=== PATIENT | female | born 1970 | race African-American/Black ===

== ENCOUNTER 2017-01-25 21:25 | Inpatient (IN) | payer OTHER ==
[2017-01-25 21:42] VITALS: BMI 21.1
--- NOTE | 2017-01-25 21:49 | HP ---
CIWA Score - CIWA Score Nausea/Vomitin-Mild Nausea/No Vomiting Muscle Tremors: 4-Moderate,w/Arms Extend Anxiety: 4-Mod. Anxious/Guarded Agitation: 4-Moderately Restless Paroxysmal Sweats: 1-Minimal Palms Moist Orientation: 0-Oriented Tacttile Disturbances: 0-None Auditory Disturbances: 0-None Visual Disturbances: 0-None Headache: 0-None Present CIWA-Ar Total Score: 14 Admission ROS BHS - HPI Chief Complaint: withdrawal sx Allergies/Adverse Reactions: Allergies Allergy/AdvReac Type Severity Reaction Status Date / Time No Known Allergies Allergy Verified 01/25/17 21:46 History of Present Illness: 46 years old female with long history of alcohol nicotine cocaine dependence, has hiv and schizophrenia is admitted to detox Exam Limitations: No Limitations - Ebola screening Have you traveled outside of the country in the last 21 days: No Have you had contact with anyone from an Ebola affected area: No Have you been sick,other than usual withdrawal symptoms: No Do you have a fever: No - Review of Systems Constitutional: Loss of Appetite, Changes in sleep, Unintentional Wgt. Loss, Unexplained wgt Loss EENT: reports: No Symptoms Reported Respiratory: reports: No Symptoms reported Cardiac: reports: No Symptoms Reported GI: reports: Nausea, Poor Appetite, Poor Fluid Intake, Abdominal cramping : reports: No Symptoms Reported Musculoskeletal: reports: No Symptoms Reported Integumentary: reports: No Symptoms Reported Neuro: reports: Tremors Endocrine: reports: No Symptoms Reported Hematology: reports: No Symptoms Reported Psychiatric: reports: Judgement Intact, Orientated x3, Anxious, Depressed Other Systems: Reviewed and Negative Patient History - Patient Medical History Hx Anemia: No Hx Asthma: No Hx Chronic Obstructive Pulmonary Disease (COPD): No Hx Cancer: No Hx Cardiac Disorders: No Hx Congestive Heart Failure: No Hx Hypertension: No Hx Hypercholesterolemia: No Hx Pacemaker: No HX Cerebrovascular Accident: No Hx Seizures: No Hx Dementia: No Hx Diabetes: No Hx Gastrointestinal Disorders: No Hx Liver Disease: No Hx Genitourinary Disorders: No Hx Sexually Transmitted Disorders: No Hx Renal Disease (ESRD): No Hx Thyroid Disease: No Hx Human Immunodeficiency Virus (HIV): Yes (2006) Hx Hepatitis C: No Hx Depression: No Hx Suicide Attempt: No Hx Bipolar Disorder: No Hx Schizophrenia: Yes - Patient Surgical History Past Surgical History: No - PPD History Previous Implant?: Yes Documented Results: Negative w/o proof Implanted On Prior [facility] Admission?: No PPD to be Administered?: Yes - Reproductive History Patient is a Female of Child Bearing Age (11 -55 yrs old): Yes Last Menstrual Period: 01/26/16 Patient : No - Smoking Cessation Smoking history: Current every day smoker Have you smoked in the past 12 months: Yes Cigars Per Day: 0 Hx Chewing Tobacco Use: No Initiated information on smoking cessation: Yes 'Breaking Loose' booklet given: 01/25/17 - Substance & Tx. History Hx Alcohol Use: Yes Hx Substance Use: Yes Substance Use Type: Alcohol, Cocaine Hx Substance Use Treatment: Yes (09/2016) - Substances Abused Alcohol Route: Oral Frequency: Daily Amount used: 1 1/2 pint volka Age of first use: 17 Date of Last Use: 01/25/17 Cocaine Route: Smoking Frequency: Daily Amount used: 7 G Age of first use: 22 Date of Last Use: 01/24/17 Family Disease History - Family Disease History Family Disease History: Diabetes: Father (), Other: Father Admission Physical Exam [facility] - Vital Signs Vital Signs: Vital Signs - 24 hr 01/25/17 21:40 Temperature 97.4 F L Pulse Rate 63 Respiratory 20 Rate Blood Pressure 137/74 - Physical General Appearance: Yes: Appropriately Dressed, Mild Distress, Thin, Tremorous, Irritable, Sweating, Anxious HEENTM: Yes: Hearing grossly Normal, Normal ENT Inspection, Normocephalic, Normal Voice Respiratory: Yes: Chest Non-Tender, Lungs Clear, Normal Breath Sounds, No Respiratory Distress, No Accessory Muscle Use Neck: Yes: Supple, Trachea in good position Breast: Yes: Breasts Symetrical Cardiology: Yes: Regular Rhythm, Regular Rate, S1, S2 Abdominal: Yes: Non Tender, Soft, Increased Bowel Sounds Genitourinary: Yes: Within Normal Limits Back: Yes: Normal Inspection Musculoskeletal: Yes: full range of Motion, Gait Steady Extremities: Yes: Normal Inspection, Normal Range of Motion, Non-Tender, Tremors Neurological: Yes: Fully Oriented, Alert, Motor Strength 5/5, Normal Response, Depressed Affect Integumentary: Yes: Warm Lymphatic: Yes: Within Normal Limits - Diagnostic (1) Alcohol dependence with uncomplicated withdrawal Current Visit: Yes Status: Acute (2) Cocaine dependence, uncomplicated Current Visit: Yes Status: Chronic (3) Nicotine dependence Current Visit: Yes Status: Acute Qualifiers: Nicotine product type: cigarettes Substance use status: in withdrawal Qualified Code(s): F17.213 - Nicotine dependence, cigarettes, with withdrawal (4) HIV (human immunodeficiency virus infection) Current Visit: Yes Status: Chronic (5) Schizophrenia Current Visit: Yes Status: Suspected Qualifiers: Schizophrenia type: undifferentiated schizophrenia Qualified Code(s) : F20.3 - Undifferentiated schizophrenia Cleared for Admission S - Detox or Rehab [facility] Level of Care: Medically Managed Detox Regimen/Protocol: Librium [facility] Breath Alcohol Content Breath Alcohol Content: 0 Urine Pregancy Test - Result Urine Test Results: Negative- NO Line Present Urine Drug Screen - Results Drug Screen Negative: No Urine Drug Screen Results: LAURA-Cocaine
[2017-01-25] MEDS ORDERED: diphenhydrAMINE HCL 50 MG CAPSULE PO PRN (22:02)
[2017-01-25] MEDS ORDERED: NICOTINE 14 MG/24 HOURS TOPICAL PATCH TD PRN (22:02)
[2017-01-25] MEDS ORDERED: LOPERAMIDE HCL 2 MG CAPSULE PO PRN (22:02)
[2017-01-25] MEDS ORDERED: NICOTINE POLACRILEX 2 MG GUM BC PRN (22:02)
[2017-01-25] MEDS ORDERED: P-EPHED 60MG/TRIPROLIDI 2.5MG TABLET PO PRN (22:02)
[2017-01-25] MEDS ORDERED: MAGNESIUM HYDROX 2400MG/30ML ORAL SUSPENSION 30 ML CUP PO PRN (22:02)
[2017-01-25] MEDS ORDERED: guaiFENesin/D-METHORPHAN HB 10 ML UNIT-DOSE CUPS PO PRN (22:02)
[2017-01-25] MEDS ORDERED: ACETAMINOPHEN 325 MG TABLET (FP) PO PRN (22:02)
[2017-01-25] MEDS ORDERED: MAGNESIUM CITRATE 300 ML BOTTLE PO PRN (22:02)
[2017-01-25] MEDS ORDERED: MAG HYDROX/AL HYDROX/SIMETH 30 ML UNIT-DOSE CUP PO PRN (22:02)
[2017-01-25] MEDS ORDERED: MENTHOL/PHENOL 1 EACH UD MM PRN (22:02)
[2017-01-25] MEDS ORDERED: chlordiazePOXIDE HCL 25 MG CAPSULE PO PRN (22:02)
[2017-01-25] MEDS ORDERED: IBUPROFEN 400 MG TABLET (FP) PO PRN (22:02)
[2017-01-25] MEDS ORDERED: COLLOIDAL OATMEAL 1 BAR EACH TP PRN (22:07)
[2017-01-25] MEDS: chlordiazePOXIDE HCL 25 MG CAPSULE PO SCH (23:38)
[2017-01-26] MEDS: chlordiazePOXIDE HCL 25 MG CAPSULE PO SCH ×4 (05:36→22:28)
[2017-01-26 10:24] LABS: ALBUMIN 3.7 g/dl (3.4-5.0); ANION GAP 7 (8-16); BILIRUBIN,TOTAL 0.5 mg/dL (0.2-1.0); CALCIUM 9.1 mg/dL (8.5-10.1); CO2 27 mmol/L (21-32); CREATININE 0.9 mg/dL (0.55-1.02); GLUCOSE,RANDOM 94 mg/dL (74-106); SGOT/AST 11 U/L (15-37); SGPT/ALT 17 U/L (12-78); TOT PROT 7.3 g/dl (6.4-8.2)
[2017-01-26 10:25] LABS: ALK PHOS 84 U/L (45-117)
[2017-01-26] MEDS: PRENATAL VITAMINS W/ FOLIC ACID TABLET (FP) PO SCH (10:34)
--- NOTE | 2017-01-26 11:21 | PN ---
S CIWA - CIWA Score Nausea/Vomitin Muscle Tremors: 3 Anxiety: 3 Agitation: 2 Paroxysmal Sweats: 1-Minimal Palms Moist Orientation: 0-Oriented Tacttile Disturbances: 1-Very Mild Itch/Numbness Auditory Disturbances: 1-Very Mild Visual Disturbances: 0-None Headache: 2-Mild CIWA-Ar Total Score: 16 BHS Progress Note (SOAP) Subjective: ALERT,IRRITABLE,ANXIOUS,INTERRUPTED SLEEP,TREMOR,PAIN IN THE BODY Objective: Vital Signs Temperature 97.2 F L 01/26/17 10:49 Pulse Rate 74 01/26/17 10:49 Respiratory Rate 18 01/26/17 10:49 Blood Pressure 107/66 01/26/17 10:49 O2 Sat by Pulse Oximetry (%) EKG NSR WITH SINUS ARRHYTHMIA NORMAL 01/26/17 13:04 Laboratory Last Values Sodium 140 mmol/L (136-145) 01/26/17 08:00 Potassium 4.0 mmol/L (3.5-5.1) 01/26/17 08:00 Chloride 106 mmol/L (98-107) 01/26/17 08:00 Carbon Dioxide 27 mmol/L (21-32) 01/26/17 08:00 Anion Gap 7 (8-16) L 01/26/17 08:00 BUN 16 mg/dL (7-18) 01/26/17 08:00 Creatinine 0.9 mg/dL (0.55-1.02) 01/26/17 08:00 Creat Clearance w eGFR > 60 (>60) 01/26/17 08:00 Random Glucose 94 mg/dL (74-106) 01/26/17 08:00 Calcium 9.1 mg/dL (8.5-10.1) 01/26/17 08:00 Total Bilirubin 0.5 mg/dL (0.2-1.0) 01/26/17 08:00 AST 11 U/L (15-37) L 01/26/17 08:00 ALT 17 U/L (12-78) 01/26/17 08:00 Alkaline Phosphatase 84 U/L (45-117) 01/26/17 08:00 Total Protein 7.3 g/dl (6.4-8.2) 01/26/17 08:00 Albumin 3.7 g/dl (3.4-5.0) 01/26/17 08:00 RPR Titer Nonreactive (NONREACTIVE) 01/26/17 08:00 Assessment: 01/26/17 13:04 WITHDRAWAL SYMPTOM Plan: CONTINUE DETOX
--- NOTE | 2017-01-26 13:05 | EKG ---
Test Reason : Blood Pressure : / mmHG Vent. Rate : 063 BPM Atrial Rate : 063 BPM P-R Int : 148 ms QRS Dur : 084 ms QT Int : 432 ms P-R-T Axes : 042 074 026 degrees QTc Int : 442 ms NORMAL SINUS RHYTHM WITH SINUS ARRHYTHMIA NORMAL ECG NO PREVIOUS ECGS AVAILABLE Confirmed by DEVEN LIZ MD ([id number]) on 01/26/2017 1:05:29 PM Referred By: Confirmed By:DEVEN LIZ MD
--- NOTE | 2017-01-26 17:42 | CONSULT ---
[facility] Psychiatric Consult - Data Date of interview: 01/26/17 Admission source: [facility] Identifying data: First admission to [facility] for this 46 y/o AA female seeking detox treatment at [address] [place] [address] for alcohol and cocaine dependence.Patient is single,a motehr of two,domiciled,unemployed and supported on [employer] funds. Substance Abuse History: Confirmed by patient. Smoking Cessation. Smoking history: Current every day smoker. Have you smoked in the past 12 months: Yes. Cigars Per Day: 0. Hx Chewing Tobacco Use: No. Initiated information on smoking cessation: Yes. 'Breaking Loose' booklet given: 01/25/17. - Substance & Tx. History. Hx Alcohol Use: Yes. Hx Substance Use: Yes. Substance Use Type : Alcohol, Cocaine. Hx Substance Use Treatment: Yes (09/2016). - Substances Abused. Alcohol. Route: Oral. Frequency: Daily. Amount used: 1 1/2 pint volka. Age of first use: 17. Date of Last Use: 01/25/17. Cocaine. Route: Smoking. Frequency: Daily. Amount used: 7 G. Age of first use: 22. Date of Last Use: 01/24/17 Medical History: HIV infection since 2006 (on ART medications). Psychiatric History: Diagnosed with Scizophrenia.Prescribed seroquel 100 mg po tid (self-report).Ms Jean-Baptiste is followed at the [facility] OPD clinic in [facility].No reported history of psychiatric hospitalizations or suicide attempts. Physical/Sexual Abuse/Trauma History: Patient denies. Additional Comment: Urine Drug Screen Results: LAURA-Cocaine.Noted. Mental Status Exam - Mental Status Exam Alert and Oriented to: Time, Place, Person Cognitive Function: Good Patient Appearance: Well Groomed Mood: Hopeful, Euthymic Affect: Appropriate, Normal Range Patient Behavior: Appropriate, Cooperative Speech Pattern: Clear Voice Loudness: Normal Thought Process: Goal Oriented Thought Disorder: Not Present Hallucinations: Denies Suicidal Ideation: Denies Homicidal Ideation: Denies Insight/Judgement: Poor Sleep: Poorly, Difficulty falling asleep Appetite: Good Muscle strength/Tone: Normal Gait/Station: Normal
--- NOTE | 2017-01-26 17:53 | CONSULT ---
[facility] Psychiatric Consult - Data Date of interview: 01/26/17 Admission source: [facility] Identifying data: First admission to [facility] for this 46 y/o AA female seeking detox treatment on for alcohol and cocaine dependence.Patient is single,a mother of two,domiciled,unemployed and supported on [employer] funds. Substance Abuse History: - Smoking Cessation. Smoking history: Current every day smoker. Have you smoked in the past 12 months: Yes. Cigars Per Day: 0. Hx Chewing Tobacco Use: No. Initiated information on smoking cessation: Yes. ' Breaking Loose' booklet given: 01/25/17. - Substance & Tx. History. Hx Alcohol Use: Yes. Hx Substance Use: Yes. Substance Use Type: Alcohol, Cocaine. Hx Substance Use Treatment: Yes (09/2016). - Substances Abused. Alcohol. Route: Oral. Frequency: Daily. Amount used: 1 1/2 pint volka. Age of first use: 17. Date of Last Use: 01/25/17. Cocaine. Route: Smoking. Frequency: Daily. Amount used: 7 G. Age of first use: 22. Date of Last Use: 01/24/17 Medical History: HIV infection since 2006 (on ART medications). Psychiatric History: Diagnosed with Schizophrenia.Prescribed seroquel 100 mg po tid (self-report).Ms Jean-Baptiste reports that she gets her psychiatric OPD care at the [facility] mental clinic in [facility].She denies history of psychiatric hospitalizations or suicide attempts. Physical/Sexual Abuse/Trauma History: Patient denies. Additional Comment: Urine Drug Screen Results: LAURA-Cocaine.Noted. Mental Status Exam - Mental Status Exam Alert and Oriented to: Time, Place, Person Cognitive Function: Good Patient Appearance: Well Groomed Mood: Hopeful, Euthymic Affect: Appropriate, Normal Range Patient Behavior: Fatigued, Appropriate, Cooperative Speech Pattern: Clear Voice Loudness: Normal Thought Process: Intact, Goal Oriented Thought Disorder: Not Present Hallucinations: Denies Suicidal Ideation: Denies Homicidal Ideation: Denies Insight/Judgement: Poor Sleep: Poorly, Difficulty falling asleep Appetite: Good Muscle strength/Tone: Normal Gait/Station: Normal Psychiatric Findings - Problem List ([place] 1, 2,3) (1) Schizophrenia Status: Chronic Qualifiers: Schizophrenia type: undifferentiated schizophrenia Qualified Code(s) : F20.3 - Undifferentiated schizophrenia; F20.3 - Undifferentiated schizophrenia ; F20.3 - Undifferentiated schizophrenia; F20.3 - Undifferentiated schizophrenia (2) Alcohol dependence with uncomplicated withdrawal Status: Acute (3) Cocaine dependence, uncomplicated Status: Acute (4) Nicotine dependence Status: Acute Qualifiers: Nicotine product type: cigarettes Substance use status: in withdrawal Qualified Code(s): F17.213 - Nicotine dependence, cigarettes, with withdrawal; F17.213 - Nicotine dependence, cigarettes, with withdrawal (5) HIV (human immunodeficiency virus infection) Status: Chronic (6) Insomnia Status: Acute - Initial Treatment Plan Initial Treatment Plan: Psychoeducation.Detoxification.Seroquel 100 mg po bid ( reduced).Titration to follow if no oversedation in next 24 hours.Side effects/ benefits discussed with patient.She agrees with this plan of care.Observation.Confirmed pharmacy claims of seroquel 100 mg (tid) on 01/08/[address] [facility] ([address] [facility]).
[2017-01-26 20:11] LABS: MCH 31.6 pg (25.7-33.7); MCHC 33.9 g/dl (32.0-36.0); MEAN CELL VOLUME 93.2 fl (80-96); PLATELET COUNT 323 K/MM3 (134-434); RDW 12.9 % (11.6-15.6); WHITE BLOOD COUNT 3.8 K/mm3 (4.0-10.0)
[2017-01-26] MEDS: THIAMINE HCL 100 MG TABLET (FP) PO SCH (22:28)
[2017-01-26] MEDS: QUEtiapine FUMARATE 100 MG TABLET (FP) PO SCH (22:28)
[2017-01-26] MEDS: MINERAL OIL/PETROLAT/WATER TOPICAL CREAM 113 GM JAR TP SCH (22:31)
[2017-01-27] MEDS: chlordiazePOXIDE HCL 25 MG CAPSULE PO SCH ×3 (06:25→17:49)
[2017-01-27] MEDS: QUEtiapine FUMARATE 100 MG TABLET (FP) PO SCH ×2 (10:17→22:25)
[2017-01-27] MEDS: PRENATAL VITAMINS W/ FOLIC ACID TABLET (FP) PO SCH (10:17)
--- NOTE | 2017-01-27 11:29 | PN ---
S CIWA - CIWA Score Nausea/Vomitin Muscle Tremors: 3 Anxiety: 3 Agitation: 2 Paroxysmal Sweats: 1-Minimal Palms Moist Orientation: 0-Oriented Tacttile Disturbances: 1-Very Mild Itch/Numbness Auditory Disturbances: 1-Very Mild Visual Disturbances: 0-None Headache: 2-Mild CIWA-Ar Total Score: 16 BHS Progress Note (SOAP) Subjective: ALERT,IRRITABLE,ANXIOUS,INTERRUPTED SLEEP,TREMOR Objective: 01/27/17 11:27 Vital Signs Temperature 97.1 F L 01/27/17 11:07 Pulse Rate 97 H 01/27/17 11:07 Respiratory Rate 16 01/27/17 11:07 Blood Pressure 93/58 01/27/17 11:07 O2 Sat by Pulse Oximetry (%) Laboratory Last Values WBC 3.8 K/mm3 (4.0-10.0) L 01/26/17 08:00 RBC 4.05 M/mm3 (3.60-5.2) 01/26/17 08:00 Hgb 12.8 GM/dL (10.7-15.3) 01/26/17 08:00 Hct 37.7 % (32.4-45.2) 01/26/17 08:00 MCV 93.2 fl (80-96) 01/26/17 08:00 MCH 31.6 pg (25.7-33.7) 01/26/17 08:00 MCHC 33.9 g/dl (32.0-36.0) 01/26/17 08:00 RDW 12.9 % (11.6-15.6) 01/26/17 08:00 Plt Count 323 K/MM3 (134-434) 01/26/17 08:00 MPV 9.0 fl (7.5-11.1) 01/26/17 08:00 Sodium 140 mmol/L (136-145) 01/26/17 08:00 Potassium 4.0 mmol/L (3.5-5.1) 01/26/17 08:00 Chloride 106 mmol/L (98-107) 01/26/17 08:00 Carbon Dioxide 27 mmol/L (21-32) 01/26/17 08:00 Anion Gap 7 (8-16) L 01/26/17 08:00 BUN 16 mg/dL (7-18) 01/26/17 08:00 Creatinine 0.9 mg/dL (0.55-1.02) 01/26/17 08:00 Creat Clearance w eGFR > 60 (>60) 01/26/17 08:00 Random Glucose 94 mg/dL (74-106) 01/26/17 08:00 Calcium 9.1 mg/dL (8.5-10.1) 01/26/17 08:00 Total Bilirubin 0.5 mg/dL (0.2-1.0) 01/26/17 08:00 AST 11 U/L (15-37) L 01/26/17 08:00 ALT 17 U/L (12-78) 01/26/17 08:00 Alkaline Phosphatase 84 U/L (45-117) 01/26/17 08:00 Total Protein 7.3 g/dl (6.4-8.2) 01/26/17 08:00 Albumin 3.7 g/dl (3.4-5.0) 01/26/17 08:00 RPR Titer Nonreactive (NONREACTIVE) 01/26/17 08:00 Hepatitis C Antibody <0.1 s/co ratio (0.0-0.9) 01/26/17 08:00 Assessment: 01/27/17 11:29 WITHDRAWAL SYMPTOM Plan: CONTINUE DETOX
[2017-01-27] MEDS: THIAMINE HCL 100 MG TABLET (FP) PO SCH (22:25)
[2017-01-27] MEDS: MINERAL OIL/PETROLAT/WATER TOPICAL CREAM 113 GM JAR TP SCH (22:55)
[2017-01-27] MEDS: chlordiazePOXIDE 5 MG CAPSULE PO SCH (23:04)
[2017-01-28] MEDS: chlordiazePOXIDE 5 MG CAPSULE PO SCH ×2 (05:23→10:20)
[2017-01-28 09:15] VITALS: BP 102/66; PULSE 103; TEMP 97.6
--- NOTE | 2017-01-28 09:42 | PN ---
S Progress Note (SOAP) Subjective: alert,irritable,anxious,interrupted sleep Objective: 01/28/17 09:40 Vital Signs Temperature 97.6 F 01/28/17 09:14 Pulse Rate 103 H 01/28/17 09:14 Respiratory Rate 16 01/28/17 09:14 Blood Pressure 102/66 01/28/17 09:14 O2 Sat by Pulse Oximetry (%) Assessment: 01/28/17 09:41 withdrawal symptom Plan: continue detox,psychiatric evaluation about seroquel dose,discharge in am
[2017-01-28] MEDS ORDERED: NICOTINE 21 MG/24 HOURS TOPICAL PATCH TD SCH (10:00)
--- NOTE | 2017-01-28 10:14 | PN ---
BHS Progress Note Note: addendum patient is stable for discharge to rehab
--- NOTE | 2017-01-28 10:17 | DS ---
[facility] Detox Discharge Summary Admission Date: 01/25/17 Discharge Date: 01/28/17 - History Present History: Alcohol Dependence, Cocaine Dependence Additional Comments: follow up with [facility] care [facility] as arrangement Pertinent Past History: nicotine dependence hiv schizophrenia - Physical Exam Results Vital Signs: Vital Signs Temperature 97.6 F 01/28/17 09:14 Pulse Rate 103 H 01/28/17 09:14 Respiratory Rate 16 01/28/17 09:14 Blood Pressure 102/66 01/28/17 09:14 O2 Sat by Pulse Oximetry (%) Pertinent Admission Physical Exam Findings: withdrawal symptom - Treatment Hospital Course: Detox Protocol Followed, Detoxed Safely, Responded well, Discharged Condition Good Patient has Accepted a Rehab Referral to: [facility] - Medication Discharge Medications: Ambulatory Orders Elviteg/Tracy/Emtric/Tenofo Ala [Genvoya Tablet] 1 each PO DAILY 01/25/17 Quetiapine Fumarate [Seroquel -] 200 mg PO HS #30 tab 01/26/17 - AMA Did Patient Leave Against Medical Advice: No
[2017-01-28] MEDS: QUEtiapine FUMARATE 100 MG TABLET (FP) PO SCH (10:18)
[2017-01-28] MEDS: PRENATAL VITAMINS W/ FOLIC ACID TABLET (FP) PO SCH (10:18)
[2017-01-28] MEDS ORDERED: chlordiazePOXIDE HCL 10 MG CAPSULE PO SCH (23:00)
== END 2017-01-28 13:15 | disposition other institution (70) | DRG 774 ==
LOC: EDBD 21:25 → YASAS 21:25 → Y6N 22:49
PROVIDERS: ADMIT Internal Medicine; ATTEND Internal Medicine
PROC: HZ2ZZZZ Detoxification Services for Substance Abuse Treatment (ICD-10-PCS; principal; 2017-01-25)
DX: F10.230 Alcohol dependence with withdrawal, uncomplicated (principal); F14.20 Cocaine dependence, uncomplicated; F17.213 Nicotine dependence, cigarettes, with withdrawal; F20.3 Undifferentiated schizophrenia; G47.00 Insomnia, unspecified; I49.9 Cardiac arrhythmia, unspecified; Z21 Asymptomatic human immunodeficiency virus [HIV] infection status
CPT/HCPCS: 36415; 80053; 85027; 86593; 86803; 93005; 93010

== ENCOUNTER 2017-01-28 13:39 | Inpatient (IN) | payer OTHER ==
[2017-01-28] MEDS ORDERED: MAGNESIUM CITRATE 300 ML BOTTLE PO PRN (14:03)
[2017-01-28] MEDS ORDERED: NICOTINE POLACRILEX 2 MG GUM BUC PRN (14:03)
[2017-01-28] MEDS ORDERED: hydrOXYzine PAMOATE 50 MG CAPSULE (FP) PO PRN (14:03)
[2017-01-28] MEDS ORDERED: ACETAMINOPHEN 325 MG TABLET (FP) PO PRN (14:03)
[2017-01-28] MEDS ORDERED: guaiFENesin/D-METHORPHAN HB 10 ML UNIT-DOSE CUPS PO PRN (14:03)
[2017-01-28] MEDS ORDERED: LOPERAMIDE HCL 2 MG CAPSULE PO PRN (14:03)
[2017-01-28] MEDS ORDERED: MAG HYDROX/AL HYDROX/SIMETH 30 ML UNIT-DOSE CUP PO PRN (14:03)
[2017-01-28] MEDS ORDERED: MENTHOL/PHENOL 1 EACH UD MM PRN (14:03)
[2017-01-28] MEDS ORDERED: P-EPHED 60MG/TRIPROLIDI 2.5MG TABLET PO PRN (14:03)
[2017-01-28] MEDS ORDERED: IBUPROFEN 400 MG TABLET (FP) PO PRN (14:03)
[2017-01-28] MEDS ORDERED: diphenhydrAMINE HCL 50 MG CAPSULE PO PRN (14:03)
[2017-01-28] MEDS ORDERED: MAGNESIUM HYDROX 2400MG/30ML ORAL SUSPENSION 30 ML CUP PO PRN (14:03)
--- NOTE | 2017-01-28 14:03 | HP ---
[facility] Rehab Assess/Revision - Admission History Admitted to Rehab from: [facility] Date of Admission to Rehab: 01/28/2017 - Vital signs Vital Signs: VSS, nurse will enter - Findings Detox History & Physical reviewed: Yes Concur with findings: Yes Inpatient Rehab Admission - Initial Determination Are CD services needed?: Yes Free of communicable disease: Yes Not in need of hospitalization: Yes - Rehab Admission Criteria Comorbidities: Yes Patient is meeting Inpatient Rehab admission criteria:: Yes
[2017-01-28 14:18] VITALS: BMI 22.4
--- NOTE | 2017-01-28 14:24 | HP ---
Psychiatrist Admission - Data Date of interview: 01/28/17 Admission source: [facility]ifying [facility] 46 years old single Black female, mother of 2 children, unemployed on [employer], domiciled Medical History: Significant for HIV infection since 2006 (on ART medications) . Smokes 6-7 cigarettes daily Psychiatric History: Reports that she was diagnosed with Schizophrenia in 2006 and was started on medication. Reports that she has been on medication ever since. She now receives psychiatric services at [facility] and she is currently on Seroquel 100 mg po TID. Denies history of previous psychiatric hospitalization or suicidal attempt. At present, reports feeling well but sleeps poorly. Requests to take Seroquel 100 mg daily & 200 mg HS in order to sleep better. Denies experiencing psychotic symptoms as well as S/H ideationsat present Physical/Sexual Abuse/Trauma History: Denies history of verbal, physical or sexual abuse as well as DV relationship Additional Comment: Denies any criminal history Vital Signs: Vital Signs - 24 hr 01/28/17 14:02 Temperature 98.7 F Pulse Rate 106 H Respiratory 19 Rate Blood Pressure 107/69 Allergies/Adverse Reactions: Allergies Allergy/AdvReac Type Severity Reaction Status Date / Time No Known Allergies Allergy Verified 01/25/17 21:46 Date of last physical exam: 01/25/17 Concur with the findings of this exam: Yes - Substance Abuse/Tx History Hx Alcohol Use: Yes Hx Substance Use: Yes Substance Use Type: Alcohol (Started drinking alcohol at age 17, consumes 1.5 pint daily. Last drink on 01/25/17), Cocaine (Started smoking crack cocaine at age 22, consumes 7 grams daily. Last smoked on 01/24/17) Hx Substance Use Treatment: Yes (2 previous inpt detox & 2 inpt rehab) Mental Status Exam - Mental Status Exam Alert and Oriented to: Time, Place, Person Cognitive Function: Fair Patient Appearance: Well Groomed Mood: Hopeful, Euthymic Affect: Appropriate Patient Behavior: Cooperative Speech Pattern: Clear Voice Loudness: Normal Thought Process: Intact, Goal Oriented Thought Disorder: Not Present Hallucinations: Denies Suicidal Ideation: Denies Homicidal Ideation: Denies Insight/Judgement: Fair Sleep: Poorly Appetite: Poor Muscle strength/Tone: Normal Gait/Station: Normal Psychiatric Findings - Problem List ([place] 1, 2,3) (1) Alcohol dependence Current Visit: Yes Status: Acute (2) Nicotine dependence Current Visit: No Status: Acute Qualifiers: Nicotine product type: cigarettes Substance use status: in withdrawal Qualified Code(s): F17.213 - Nicotine dependence, cigarettes, with withdrawal; F17.213 - Nicotine dependence, cigarettes, with withdrawal (3) Schizophrenia Current Visit: Yes Status: Acute (4) HIV (human immunodeficiency virus infection) Current Visit: No Status: Chronic (5) Cocaine dependence Current Visit: Yes Status: Acute - Initial Treatment Plan Initial Treatment Plan: 1) Continue Seroquel 100 mg daily & 200 mg HS. 2) Monitor progress
[2017-01-28] MEDS: QUEtiapine FUMARATE 200 MG TABLET PO SCH (21:33)
[2017-01-28] MEDS: THIAMINE HCL 100 MG TABLET (FP) PO SCH (21:33)
[2017-01-29] MEDS: QUEtiapine FUMARATE 100 MG TABLET (FP) PO SCH (10:09)
[2017-01-29] MEDS: PRENATAL VITAMINS W/ FOLIC ACID TABLET (FP) PO SCH (10:09)
[2017-01-29] MEDS: NICOTINE 14 MG/24 HOURS TOPICAL PATCH TD SCH (10:10)
[2017-01-29] MEDS: THIAMINE HCL 100 MG TABLET (FP) PO SCH (21:24)
[2017-01-29] MEDS: QUEtiapine FUMARATE 200 MG TABLET PO SCH (21:24)
[2017-01-30] MEDS: QUEtiapine FUMARATE 100 MG TABLET (FP) PO SCH (10:07)
[2017-01-30] MEDS: PRENATAL VITAMINS W/ FOLIC ACID TABLET (FP) PO SCH (10:07)
[2017-01-30] MEDS: NICOTINE 14 MG/24 HOURS TOPICAL PATCH TD SCH (10:08)
[2017-01-30] MEDS: MAG HYDROX/ALH/SMC/DPHA/LIDO 240 ML MOUTHWASH MM SCH (18:00)
[2017-01-30] MEDS: QUEtiapine FUMARATE 200 MG TABLET PO SCH (21:23)
[2017-01-30] MEDS: THIAMINE HCL 100 MG TABLET (FP) PO SCH (21:23)
[2017-01-30] MEDS ORDERED: PT OWN MED DRAWER 7, Y5N ONE (22:38)
[2017-01-31] MEDS: MAG HYDROX/ALH/SMC/DPHA/LIDO 240 ML MOUTHWASH MM SCH ×4 (00:22→23:31)
[2017-01-31] MEDS ORDERED: PT OWN MED DRAWER 7, Y5N ONE (05:41)
[2017-01-31] MEDS: PRENATAL VITAMINS W/ FOLIC ACID TABLET (FP) PO SCH (09:50)
[2017-01-31] MEDS: QUEtiapine FUMARATE 100 MG TABLET (FP) PO SCH (09:50)
[2017-01-31] MEDS: NICOTINE 14 MG/24 HOURS TOPICAL PATCH TD SCH (09:51)
[2017-01-31] MEDS: QUEtiapine FUMARATE 200 MG TABLET PO SCH (22:06)
[2017-01-31] MEDS: THIAMINE HCL 100 MG TABLET (FP) PO SCH (22:06)
[2017-02-01] MEDS: MAG HYDROX/ALH/SMC/DPHA/LIDO 240 ML MOUTHWASH MM SCH ×4 (06:12→18:00)
[2017-02-01] MEDS: QUEtiapine FUMARATE 100 MG TABLET (FP) PO SCH (09:56)
[2017-02-01] MEDS: PRENATAL VITAMINS W/ FOLIC ACID TABLET (FP) PO SCH (09:56)
[2017-02-01] MEDS: NICOTINE 14 MG/24 HOURS TOPICAL PATCH TD SCH (10:23)
[2017-02-01] MEDS: THIAMINE HCL 100 MG TABLET (FP) PO SCH (21:51)
[2017-02-01] MEDS: QUEtiapine FUMARATE 200 MG TABLET PO SCH (21:51)
[2017-02-02] MEDS: MAG HYDROX/ALH/SMC/DPHA/LIDO 240 ML MOUTHWASH MM SCH ×4 (01:12→19:18)
[2017-02-02] MEDS: NICOTINE 14 MG/24 HOURS TOPICAL PATCH TD SCH (09:55)
[2017-02-02] MEDS: PRENATAL VITAMINS W/ FOLIC ACID TABLET (FP) PO SCH (09:55)
[2017-02-02] MEDS: QUEtiapine FUMARATE 100 MG TABLET (FP) PO SCH (09:55)
[2017-02-02] MEDS: QUEtiapine FUMARATE 200 MG TABLET PO SCH (21:32)
[2017-02-02] MEDS: THIAMINE HCL 100 MG TABLET (FP) PO SCH (21:32)
[2017-02-03] MEDS: MAG HYDROX/ALH/SMC/DPHA/LIDO 240 ML MOUTHWASH MM SCH ×4 (00:54→17:37)
[2017-02-03] MEDS: PRENATAL VITAMINS W/ FOLIC ACID TABLET (FP) PO SCH (09:43)
[2017-02-03] MEDS: NICOTINE 14 MG/24 HOURS TOPICAL PATCH TD SCH (09:43)
[2017-02-03] MEDS: QUEtiapine FUMARATE 100 MG TABLET (FP) PO SCH (09:43)
[2017-02-03] MEDS: QUEtiapine FUMARATE 200 MG TABLET PO SCH (21:50)
[2017-02-03] MEDS: THIAMINE HCL 100 MG TABLET (FP) PO SCH (21:50)
[2017-02-04] MEDS: MAG HYDROX/ALH/SMC/DPHA/LIDO 240 ML MOUTHWASH MM SCH ×5 (01:42→23:29)
[2017-02-04] MEDS: QUEtiapine FUMARATE 100 MG TABLET (FP) PO SCH (09:57)
[2017-02-04] MEDS: PRENATAL VITAMINS W/ FOLIC ACID TABLET (FP) PO SCH (09:57)
[2017-02-04] MEDS: NICOTINE 14 MG/24 HOURS TOPICAL PATCH TD SCH (09:58)
[2017-02-04] MEDS: THIAMINE HCL 100 MG TABLET (FP) PO SCH (21:55)
[2017-02-04] MEDS: QUEtiapine FUMARATE 200 MG TABLET PO SCH (21:55)
[2017-02-05] MEDS: MAG HYDROX/ALH/SMC/DPHA/LIDO 240 ML MOUTHWASH MM SCH ×2 (06:24→11:40)
[2017-02-05 07:05] VITALS: BP 124/77; PULSE 99; TEMP 97.9
[2017-02-05] MEDS: PRENATAL VITAMINS W/ FOLIC ACID TABLET (FP) PO SCH (10:08)
[2017-02-05] MEDS: QUEtiapine FUMARATE 100 MG TABLET (FP) PO SCH (10:08)
[2017-02-05] MEDS: NICOTINE 14 MG/24 HOURS TOPICAL PATCH TD SCH (10:09)
--- NOTE | 2017-02-05 14:41 | PN ---
Psychiatric Progress Note Vital Signs: Vital Signs Period Temp Pulse Resp BP Sys/Goldstein Pulse Ox Last 24 Hr 97.9 F 99 18-20 124/77 Date of Session: 02/05/17 Chief Complaint:: Discharged Note HPI: Patient addressing Alcohol and Cocaine Dependence comorbid with Nicotine Dependence and Schizophrenia ROS: HIV+ was medically managed Current Medications: Active Medications Generic Name Dose Route Start Last Admin Trade Name Freq PRN Reason Stop Dose Admin Acetaminophen 650 mg 01/28/17 14:03 Tylenol - PO Q4H PRN FEVER OR PAIN Al Hydroxide/Mg Hydroxide 30 ml 01/28/17 14:03 Mylanta Oral Suspension - PO Q6H PRN DYSPEPSIA Diphenhydramine HCl 50 mg 01/28/17 14:03 Benadryl - PO HSMR1 PRN FOR ITCHING Eucalyptus/Menthol/Phenol/Sorbitol 1 each 01/28/17 14:03 Cepastat Lozenge - MM Q4H PRN SORE THROAT Guaifenesin 10 ml 01/28/17 14:03 Robitussin Dm - PO Q6H PRN COUGH Hydroxyzine Pamoate 50 mg 01/28/17 14:03 Vistaril - PO Q4H PRN AGITATION Ibuprofen 400 mg 01/28/17 14:03 Motrin - PO Q6H PRN PAIN Lidocaine/Aluminum/Magnesium/Simeth 5 ml 01/30/17 18:00 02/05/17 11:40 Magic Mouthwash *Sjr Formula* - MM Not Given Q6HPO ELSA Loperamide HCl 4 mg 01/28/17 14:03 Imodium - PO Q6H PRN DIARRHEA Magnesium Hydroxide 30 ml 01/28/17 14:03 Milk Of Magnesia - PO DAILY PRN CONSTIPATION Nicotine 14 mg 01/29/17 10:00 02/05/17 10:09 Nicoderm Patch - TD Not Given DAILY ELSA Nicotine Polacrilex 2 mg 01/28/17 14:03 Nicorette Gum - BUC Q2H PRN NICOTINE REPLACEMENT RX Non-Formulary Medication 1 each 01/29/17 10:00 02/05/17 10:08 Elviteg/Tracy/Emtric/Tenofo Ala [Genvoya Tablet] PO 1 each DAILY ELSA Administration Multivit/Folic Acid/Iron 1 tab 01/29/17 10:00 02/05/17 10:08 Vitamins (Sjr) - PO 1 tab DAILY ELSA Administration Pseudoephedrine/Triprolidine 1 combo 01/28/17 14:03 Actifed - PO TID PRN NASAL CONGESTION Quetiapine Fumarate 200 mg 01/28/17 22:00 02/04/17 21:55 Seroquel - PO 200 mg HS ELSA Administration Quetiapine Fumarate 100 mg 01/29/17 10:00 02/05/17 10:08 Seroquel - PO 100 mg DAILY ELSA Administration Thiamine HCl 100 mg 01/28/17 22:00 02/04/17 21:55 Vitamin B1 - PO 100 mg HS ELSA Administration Current Side Effect: No Lab tests ordered: Yes Lab tests reviewed: Yes Provider note:: Patient has completed this program today. She has met her treatment goals and will continue to address her issues in outpatient treatment program at [facility]. She verbalized understanding the negative consequences of her addiction and from her participation in this program, she has learned to be patient in order to do the right thing and be willing to give everything she has. She responded well to Seroquel 100 mg daily & 200 mg Hs. Scripts for 30 day supply of medication is electronically transmitted to [facility] at [address] [place] [address]. She is stable for discharge today. Total face to face time:: 35 Mental Status Exam - Mental Status Exam Alert and Oriented to: Time, Place, Person Cognitive Function: Fair Patient Appearance: Well Groomed Mood: Hopeful, Euthymic Affect: Appropriate Patient Behavior: Cooperative Speech Pattern: Clear Voice Loudness: Normal Thought Process: Intact, Goal Oriented Thought Disorder: Not Present Hallucinations: Denies Insight/Judgement: Fair Sleep: Well Appetite: Good Muscle strength/Tone: Normal Gait/Station: Normal Psychiatric Treatment Plan - Problem List (1) Alcohol dependence Current Visit: Yes (2) Nicotine dependence Current Visit: No Qualifiers: Nicotine product type: cigarettes Substance use status: in withdrawal Qualified Code(s): F17.213 - Nicotine dependence, cigarettes, with withdrawal; F17.213 - Nicotine dependence, cigarettes, with withdrawal (3) Schizophrenia Current Visit: Yes (4) HIV (human immunodeficiency virus infection) Current Visit: No (5) Cocaine dependence Current Visit: Yes Initial treatment plan: Patient is discharged today and referred to [facility] for outpatient treatment
== END 2017-02-05 15:35 | disposition home or self-care (01) | DRG 772 ==
LOC: YASAS 13:39 → Y3W 13:41
PROVIDERS: ADMIT Psychiatry & Neurology Psychiatry; ATTEND Psychiatry & Neurology Psychiatry
PROC: HZ42ZZZ Group Counseling for Substance Abuse Treatment, Cognitive-Behavioral (ICD-10-PCS; principal; 2017-01-28)
DX: F10.20 Alcohol dependence, uncomplicated (principal); F14.20 Cocaine dependence, uncomplicated; F17.213 Nicotine dependence, cigarettes, with withdrawal; F20.9 Schizophrenia, unspecified; Z21 Asymptomatic human immunodeficiency virus [HIV] infection status

== ENCOUNTER 2017-06-11 08:27 | Inpatient (IN) | payer OTHER ==
[2017-06-11 08:49] VITALS: BMI 21.8
--- NOTE | 2017-06-11 10:55 | HP ---
CIWA Score - CIWA Score Nausea/Vomitin-No Nausea/No Vomiting Muscle Tremors: 4-Moderate,w/Arms Extend Anxiety: 3 Agitation: 4-Moderately Restless Paroxysmal Sweats: 3 Orientation: 0-Oriented Tacttile Disturbances: 0-None Auditory Disturbances: 0-None Visual Disturbances: 0-None Headache: 0-None Present CIWA-Ar Total Score: 14 Admission ROS BHS - HPI Chief Complaint: I am here for detox Allergies/Adverse Reactions: Allergies Allergy/AdvReac Type Severity Reaction Status Date / Time No Known Allergies Allergy Verified 06/11/17 10:32 History of Present Illness: Pt is a 46yr old female with a history of alcohol and cocaine dependence seeking detox for treatment. Exam Limitations: No Limitations - Ebola screening Have you traveled outside of the country in the last 21 days: No (N) Have you had contact with anyone from an Ebola affected area: No Have you been sick,other than usual withdrawal symptoms: No Do you have a fever: No - Review of Systems Constitutional: Chills, Loss of Appetite, Night Sweats, Changes in sleep, Unintentional Wgt. Loss EENT: reports: No Symptoms Reported Respiratory: reports: No Symptoms reported Cardiac: reports: No Symptoms Reported GI: reports: No Symptoms Reported, Poor Fluid Intake : reports: No Symptoms Reported Musculoskeletal: reports: Back Pain, Joint Pain Integumentary: reports: Flushing, Sweating Neuro: reports: Headache, Tingling, Tremors Endocrine: reports: Excessive Sweating, Flushing, Intolerance to Cold, Intolerance to Heat Hematology: reports: No Symptoms Reported Psychiatric: reports: No Sypmtoms Reported, Judgement Intact, Orientated x3, Agitated, Anxious Other Systems: Reviewed and Negative Patient History - Patient Medical History Hx Anemia: No Hx Asthma: No Hx Chronic Obstructive Pulmonary Disease (COPD): No Hx Cancer: No Hx Cardiac Disorders: No Hx Congestive Heart Failure: No Hx Hypertension: No Hx Hypercholesterolemia: No Hx Pacemaker: No HX Cerebrovascular Accident: No Hx Seizures: No Hx Dementia: No Hx Diabetes: No Hx Gastrointestinal Disorders: No Hx Liver Disease: No Hx Genitourinary Disorders: No Hx Sexually Transmitted Disorders: No Hx Renal Disease (ESRD): No Hx Thyroid Disease: No Hx Human Immunodeficiency Virus (HIV): Yes (since 2006 currently on Gyemvoya) Hx Hepatitis C: No Hx Depression: No Hx Suicide Attempt: No Hx Bipolar Disorder: No Hx Schizophrenia: Yes - Patient Surgical History Past Surgical History: No Hx Neurologic Surgery: No Hx Cataract Extraction: No Hx Cardiac Surgery: No Hx Lung Surgery: No Hx Breast Surgery: No Hx Breast Biopsy: No Hx Abdominal Surgery: No Hx Appendectomy: No Hx Cholecystectomy: No Hx Genitourinary Surgery: No Hx Section: No Hx Orthopedic Surgery: No Anesthesia Reaction: No - PPD History Previous Implant?: Yes Documented Results: Negative w/o proof Implanted On Prior [facility] Admission?: Yes Date: 01/27/17 Results: 0 mm PPD to be Administered?: No - Reproductive History Patient is a Female of Child Bearing Age (11 -55 yrs old): Yes Last Menstrual Period: 04/04/17 Patient : No - Smoking Cessation Smoking history: Current every day smoker Have you smoked in the past 12 months: Yes Aproximately how many cigarettes per day: 40 Cigars Per Day: 0 Hx Chewing Tobacco Use: No Initiated information on smoking cessation: Yes 'Breaking Loose' booklet given: 06/11/17 - Substance & Tx. History Hx Alcohol Use: Yes Hx Substance Use: Yes Substance Use Type: Alcohol, Cocaine Hx Substance Use Treatment: Yes (last detox [facility] 03/2017) - Substances Abused Alcohol-vodka Route: Oral Frequency: Daily Amount used: 3-4 pts. Age of first use: 17 Date of Last Use: 06/10/17 Family Disease History - Family Disease History Family Disease History: Diabetes: Father (), Other: Father Admission Physical Exam BHS - Vital Signs Vital Signs: Vital Signs - 24 hr 06/11/17 08:45 Temperature 96.8 F L Pulse Rate 67 Respiratory 18 Rate Blood Pressure 116/79 - Physical General Appearance: Yes: Appropriately Dressed, Mild Distress, Moderate Distress , Tremorous, Irritable, Sweating, Anxious HEENTM: Yes: Hearing grossly Normal, Normal Voice Respiratory: Yes: Lungs Clear, Normal Breath Sounds, No Respiratory Distress Neck: Yes: No masses,lesions,Nodules Breast: Yes: Within Normal Limits Cardiology: Yes: Regular Rhythm, Regular Rate, S1, S2 Abdominal: Yes: Normal Bowel Sounds, Non Tender Genitourinary: Yes: Within Normal Limits Back: Yes: Normal Inspection Musculoskeletal: Yes: full range of Motion Extremities: Yes: Normal Capillary Refill, Normal Inspection, Non-Tender, Tremors Neurological: Yes: iuss master analyst II-XII NML intact, Fully Oriented, Normal Response Integumentary: Yes: Normal Color, Diaphoresis Lymphatic: Yes: Within Normal Limits - Diagnostic (1) Nicotine dependence Current Visit: Yes Status: Chronic Qualifiers: Nicotine product type: cigarettes Substance use status: uncomplicated Qualified Code(s): F17.210 - Nicotine dependence, cigarettes, uncomplicated (2) Alcohol dependence with uncomplicated withdrawal Current Visit: Yes Status: Chronic (3) Cocaine dependence, uncomplicated Current Visit: Yes Status: Chronic (4) HIV (human immunodeficiency virus infection) Current Visit: Yes Status: Chronic Cleared for Admission [facility] - Detox or Rehab [facility] Level of Care: Medically Managed Detox Regimen/Protocol: Librium [facility] Breath Alcohol Content Breath Alcohol Content: 0 Urine Pregancy Test - Result Urine Test Results: Negative- NO Line Present Urine Drug Screen - Results Drug Screen Negative: No Urine Drug Screen Results: LAURA-Cocaine
[2017-06-11] MEDS ORDERED: P-EPHED 60MG/TRIPROLIDI 2.5MG TABLET PO PRN (11:08)
[2017-06-11] MEDS ORDERED: hydrOXYzine PAMOATE 50 MG CAPSULE (FP) PO PRN (11:08)
[2017-06-11] MEDS ORDERED: MAGNESIUM HYDROX 2400MG/30ML ORAL SUSPENSION 30 ML CUP PO PRN (11:08)
[2017-06-11] MEDS ORDERED: MAGNESIUM CITRATE 300 ML BOTTLE PO PRN (11:08)
[2017-06-11] MEDS ORDERED: MENTHOL/PHENOL 1 EACH UD MM PRN (11:08)
[2017-06-11] MEDS ORDERED: ACETAMINOPHEN 325 MG TABLET (FP) PO PRN (11:08)
[2017-06-11] MEDS ORDERED: MAG HYDROX/AL HYDROX/SIMETH 30 ML UNIT-DOSE CUP PO PRN (11:08)
[2017-06-11] MEDS ORDERED: LOPERAMIDE HCL 2 MG CAPSULE PO PRN (11:08)
[2017-06-11] MEDS ORDERED: guaiFENesin/D-METHORPHAN HB 10 ML UNIT-DOSE CUPS PO PRN (11:08)
[2017-06-11] MEDS ORDERED: IBUPROFEN 400 MG TABLET (FP) PO PRN (11:08)
[2017-06-11] MEDS ORDERED: chlordiazePOXIDE HCL 25 MG CAPSULE PO PRN (11:08)
[2017-06-11] MEDS ORDERED: chlordiazePOXIDE HCL 25 MG CAPSULE PO ONE (12:54)
[2017-06-11] MEDS: chlordiazePOXIDE HCL 25 MG CAPSULE PO SCH ×2 (17:13→22:24)
--- NOTE | 2017-06-11 17:26 | CONSULT ---
[facility] Psychiatric Consult - Data Date of interview: 04/10/18 Admission source: [facility] Identifying data: Pt. is a 46 year old single female. mother of two, and currently unemployed. This is one of multiple admissions for patient. Pt. admitted to for alcohol and cocaine dependence. Substance Abuse History: Following information confirmed with Ms. Jean-Baptiste: Smoking Cessation. Smoking history: Current every day smoker. Have you smoked in the past 12 months: Yes. Aproximately how many cigarettes per day: 40. Cigars Per Day: 0. Hx Chewing Tobacco Use: No. Initiated information on smoking cessation: Yes. 'Breaking Loose' booklet given: 06/11/17. - Substance & Tx. History. Hx Alcohol Use: Yes. Hx Substance Use: Yes. Substance Use Type : Alcohol, Cocaine. Hx Substance Use Treatment: Yes (last detox [facility] 2016). - Substances Abused. Alcohol-vodka. Route: Oral. Frequency: Daily. Amount used: 3-4 pts. Age of first use: 17. Date of Last Use: 06/10/17 Medical History: HIV Psychiatric History: Pt. denies h/o psychiatric hospitalizations. Pt. receives outpatient psychiatric care from [facility] and is prescribed Seroquel 100mg TID. Pharmacy claims reviewed. Pt. reports medication adherence. Pt. has a diagnosis of Schizophrenia. Pt. denies h/o suicide attempts. Physical/Sexual Abuse/Trauma History: Denies. Mental Status Exam - Mental Status Exam Alert and Oriented to: Time, Place, Person Cognitive Function: Good Patient Appearance: Well Groomed Mood: Hopeful, Happy Affect: Appropriate, Mood Congruent Patient Behavior: Cooperative Speech Pattern: Clear, Appropriate Voice Loudness: Normal Thought Process: Goal Oriented Thought Disorder: Not Present Hallucinations: Denies Suicidal Ideation: Denies Homicidal Ideation: Denies Insight/Judgement: Poor Sleep: Poorly Appetite: Fair Muscle strength/Tone: Normal Gait/Station: Normal Psychiatric Findings - Problem List ([place] 1, 2,3) (1) Alcohol dependence with uncomplicated withdrawal Current Visit: Yes Status: Chronic (2) Cocaine dependence, uncomplicated Current Visit: Yes Status: Chronic (3) Nicotine dependence Current Visit: Yes Status: Chronic Qualifiers: Nicotine product type: cigarettes Substance use status: uncomplicated Qualified Code(s): F17.210 - Nicotine dependence, cigarettes, uncomplicated (4) Schizophrenia Current Visit: Yes Status: Chronic Comment: Self reports. Is prescribed seroquel 100mg TID. - Initial Treatment Plan Initial Treatment Plan: Psychoeducation provided. Detoxification provided. Seroquel 100mg TID ordered. Benefits and side effects discussed. Verbal consent given. Will continue to monitor patient.
[2017-06-11] MEDS: THIAMINE HCL 100 MG TABLET (FP) PO SCH (22:23)
[2017-06-11] MEDS: QUEtiapine FUMARATE 100 MG TABLET (FP) PO SCH (22:24)
[2017-06-11 23:38] LABS: URINE APPEARANCE SLCLOUDY; URINE BILIRUBIN NEGATIVE (NEGATIVE); URINE BLOOD NEGATIVE (NEGATIVE); URINE COLOR YELLOW; URINE GLUCOSE (UA) NEGATIVE (NEGATIVE); URINE KETONE 1+ (NEGATIVE); URINE LEUK ESTERASE NEGATIVE (NEGATIVE); URINE NITRITE NEGATIVE (NEGATIVE); URINE PROTEIN NEGATIVE (NEGATIVE); URINE UROBILINOGEN NEGATIVE mg/dL (0.2-1.0)
[2017-06-12] MEDS: chlordiazePOXIDE HCL 25 MG CAPSULE PO SCH ×4 (05:22→22:16)
[2017-06-12] MEDS: QUEtiapine FUMARATE 100 MG TABLET (FP) PO SCH ×3 (05:22→22:16)
[2017-06-12 10:00] LABS: HEMATOCRIT 41.5 % (32.4-45.2); HEMOGLOBIN 13.7 GM/dL (10.7-15.3); MCH 30.6 pg (25.7-33.7); MEAN CELL VOLUME 92.8 fl (80-96); MEAN PLT VOLUME 9.3 fl (7.5-11.1); PLATELET COUNT 274 K/MM3 (134-434); RBC 4.47 M/mm3 (3.60-5.2); RDW 12.8 % (11.6-15.6); WHITE BLOOD COUNT 4.3 K/mm3 (4.0-10.0)
[2017-06-12] MEDS: ELVITEG/COB/EMTRI/TENOF (GENVOYA) TABLET (NF) PO SCH (10:21)
[2017-06-12] MEDS: PRENATAL VITAMINS W/ FOLIC ACID TABLET (FP) PO SCH (10:21)
[2017-06-12 10:40] LABS: CHLORIDE 105 mmol/L (98-107); POTASSIUM 4.2 mmol/L (3.5-5.1); SODIUM 139 mmol/L (136-145)
--- NOTE | 2017-06-12 11:02 | EKG ---
Test Reason : Blood Pressure : / mmHG Vent. Rate : 064 BPM Atrial Rate : 064 BPM P-R Int : 144 ms QRS Dur : 086 ms QT Int : 436 ms P-R-T Axes : 048 072 044 degrees QTc Int : 449 ms NORMAL SINUS RHYTHM NORMAL ECG WHEN COMPARED WITH ECG OF 08-APR-2017 15:46, NO SIGNIFICANT CHANGE WAS FOUND Confirmed by DEE MULLIGAN MD ([id number]) on 06/12/2017 11:01:56 AM Referred By: Confirmed By:DEE MULLIGAN MD
[2017-06-12 11:09] LABS: ALBUMIN 4.3 g/dl (3.4-5.0); ALK PHOS 96 U/L (45-117); ANION GAP 6 (8-16); BILIRUBIN,TOTAL 1.1 mg/dL (0.2-1.0); BLOOD UREA NITROGEN 23 mg/dL (7-18); CALCIUM 9.2 mg/dL (8.5-10.1); CO2 28 mmol/L (21-32); CREATININE 1.1 mg/dL (0.55-1.02); GLUCOSE,RANDOM 102 mg/dL (74-106); SGOT/AST 13 U/L (15-37); SGPT/ALT 19 U/L (12-78); TOT PROT 8.4 g/dl (6.4-8.2)
--- NOTE | 2017-06-12 12:34 | PN ---
[facility] CIWA - CIWA Score Nausea/Vomitin-Mild Nausea/No Vomiting Muscle Tremors: 4-Moderate,w/Arms Extend Anxiety: 4-Mod. Anxious/Guarded Agitation: 3 Paroxysmal Sweats: 1-Minimal Palms Moist Orientation: 0-Oriented Tacttile Disturbances: 0-None Auditory Disturbances: 0-None Visual Disturbances: 0-None Headache: 0-None Present CIWA-Ar Total Score: 13 BHS Progress Note (SOAP) Subjective: nausea sweat tremor anxiety agitation irritable Objective: 06/12/17 12:33 Vital Signs Temperature 96.8 F L 06/12/17 10:31 Pulse Rate 73 06/12/17 10:31 Respiratory Rate 16 06/12/17 10:31 Blood Pressure 106/72 06/12/17 10:31 O2 Sat by Pulse Oximetry (%) Laboratory Last Values WBC 4.3 K/mm3 (4.0-10.0) 06/12/17 05:50 RBC 4.47 M/mm3 (3.60-5.2) 06/12/17 05:50 Hgb 13.7 GM/dL (10.7-15.3) 06/12/17 05:50 Hct 41.5 % (32.4-45.2) 06/12/17 05:50 MCV 92.8 fl (80-96) 06/12/17 05:50 MCH 30.6 pg (25.7-33.7) 06/12/17 05:50 MCHC 33.0 g/dl (32.0-36.0) 06/12/17 05:50 RDW 12.8 % (11.6-15.6) 06/12/17 05:50 Plt Count 274 K/MM3 (134-434) 06/12/17 05:50 MPV 9.3 fl (7.5-11.1) 06/12/17 05:50 Sodium 139 mmol/L (136-145) 06/12/17 05:50 Potassium 4.2 mmol/L (3.5-5.1) 06/12/17 05:50 Chloride 105 mmol/L (98-107) 06/12/17 05:50 Carbon Dioxide 28 mmol/L (21-32) 06/12/17 05:50 Anion Gap 6 (8-16) L 06/12/17 05:50 BUN 23 mg/dL (7-18) H 06/12/17 05:50 Creatinine 1.1 mg/dL (0.55-1.02) H 06/12/17 05:50 Creat Clearance w eGFR 53.24 (>60) 06/12/17 05:50 Random Glucose 102 mg/dL (74-106) 06/12/17 05:50 Calcium 9.2 mg/dL (8.5-10.1) 06/12/17 05:50 Total Bilirubin 1.1 mg/dL (0.2-1.0) H D 06/12/17 05:50 AST 13 U/L (15-37) L 06/12/17 05:50 ALT 19 U/L (12-78) 06/12/17 05:50 Alkaline Phosphatase 96 U/L (45-117) 06/12/17 05:50 Total Protein 8.4 g/dl (6.4-8.2) H 06/12/17 05:50 Albumin 4.3 g/dl (3.4-5.0) 06/12/17 05:50 Urine Color Yellow 06/11/17 20:21 Urine Appearance Slcloudy 06/11/17 20:21 Urine pH 5.0 (5.0-8.0) 06/11/17 20:21 Ur Specific [place] 1.027 (1.001-1.035) 06/11/17 20:21 Urine Protein Negative (NEGATIVE) 06/11/17 20:21 Urine Glucose (UA) Negative (NEGATIVE) 06/11/17 20:21 Urine Ketones 1+ (NEGATIVE) H 06/11/17 20:21 Urine Blood Negative (NEGATIVE) 06/11/17 20:21 Urine Nitrite Negative (NEGATIVE) 06/11/17 20:21 Urine Bilirubin Negative (NEGATIVE) 06/11/17 20:21 Urine Urobilinogen Negative mg/dL (0.2-1.0) 06/11/17 20:21 Ur Leukocyte Esterase Negative (NEGATIVE) 06/11/17 20:21 RPR Titer Nonreactive (NONREACTIVE) 06/12/17 05:50 lab noted Assessment: 06/12/17 12:34 withdrawal sx Plan: continue detox
[2017-06-12] MEDS: THIAMINE HCL 100 MG TABLET (FP) PO SCH (22:16)
[2017-06-13] MEDS: QUEtiapine FUMARATE 100 MG TABLET (FP) PO SCH ×3 (06:13→22:39)
[2017-06-13] MEDS: chlordiazePOXIDE HCL 25 MG CAPSULE PO SCH ×2 (06:13→10:19)
--- NOTE | 2017-06-13 09:08 | PN ---
S CIWA - CIWA Score Nausea/Vomitin-No Nausea/No Vomiting Muscle Tremors: 4-Moderate,w/Arms Extend Anxiety: 3 Agitation: 3 Paroxysmal Sweats: 1-Minimal Palms Moist Orientation: 0-Oriented Tacttile Disturbances: 0-None Auditory Disturbances: 0-None Visual Disturbances: 0-None Headache: 0-None Present CIWA-Ar Total Score: 11 BHS Progress Note (SOAP) Subjective: sweat tremor anxiety irritable restlessness Objective: 06/13/17 09:06 Vital Signs Temperature 97.9 F 06/13/17 06:00 Pulse Rate 88 06/13/17 06:00 Respiratory Rate 16 06/13/17 06:00 Blood Pressure 98/60 06/13/17 06:00 O2 Sat by Pulse Oximetry (%) Laboratory Last Values WBC 4.3 K/mm3 (4.0-10.0) 06/12/17 05:50 RBC 4.47 M/mm3 (3.60-5.2) 06/12/17 05:50 Hgb 13.7 GM/dL (10.7-15.3) 06/12/17 05:50 Hct 41.5 % (32.4-45.2) 06/12/17 05:50 MCV 92.8 fl (80-96) 06/12/17 05:50 MCH 30.6 pg (25.7-33.7) 06/12/17 05:50 MCHC 33.0 g/dl (32.0-36.0) 06/12/17 05:50 RDW 12.8 % (11.6-15.6) 06/12/17 05:50 Plt Count 274 K/MM3 (134-434) 06/12/17 05:50 MPV 9.3 fl (7.5-11.1) 06/12/17 05:50 Sodium 139 mmol/L (136-145) 06/12/17 05:50 Potassium 4.2 mmol/L (3.5-5.1) 06/12/17 05:50 Chloride 105 mmol/L (98-107) 06/12/17 05:50 Carbon Dioxide 28 mmol/L (21-32) 06/12/17 05:50 Anion Gap 6 (8-16) L 06/12/17 05:50 BUN 23 mg/dL (7-18) H 06/12/17 05:50 Creatinine 1.1 mg/dL (0.55-1.02) H 06/12/17 05:50 Creat Clearance w eGFR 53.24 (>60) 06/12/17 05:50 Random Glucose 102 mg/dL (74-106) 06/12/17 05:50 Calcium 9.2 mg/dL (8.5-10.1) 06/12/17 05:50 Total Bilirubin 1.1 mg/dL (0.2-1.0) H D 06/12/17 05:50 AST 13 U/L (15-37) L 06/12/17 05:50 ALT 19 U/L (12-78) 06/12/17 05:50 Alkaline Phosphatase 96 U/L (45-117) 06/12/17 05:50 Total Protein 8.4 g/dl (6.4-8.2) H 06/12/17 05:50 Albumin 4.3 g/dl (3.4-5.0) 06/12/17 05:50 Urine Color Yellow 06/11/17 20:21 Urine Appearance Slcloudy 06/11/17 20:21 Urine pH 5.0 (5.0-8.0) 06/11/17 20:21 Ur Specific [place] 1.027 (1.001-1.035) 06/11/17 20:21 Urine Protein Negative (NEGATIVE) 06/11/17 20:21 Urine Glucose (UA) Negative (NEGATIVE) 06/11/17 20:21 Urine Ketones 1+ (NEGATIVE) H 06/11/17 20:21 Urine Blood Negative (NEGATIVE) 06/11/17 20:21 Urine Nitrite Negative (NEGATIVE) 06/11/17 20:21 Urine Bilirubin Negative (NEGATIVE) 06/11/17 20:21 Urine Urobilinogen Negative mg/dL (0.2-1.0) 06/11/17 20:21 Ur Leukocyte Esterase Negative (NEGATIVE) 06/11/17 20:21 RPR Titer Nonreactive (NONREACTIVE) 06/12/17 05:50 lab noted Assessment: 06/13/17 09:07 withdrawal sx Plan: continue detox increase oral fluid
[2017-06-13] MEDS: ELVITEG/COB/EMTRI/TENOF (GENVOYA) TABLET (NF) PO SCH (10:19)
[2017-06-13] MEDS: PRENATAL VITAMINS W/ FOLIC ACID TABLET (FP) PO SCH (10:19)
[2017-06-13] MEDS: chlordiazePOXIDE 5 MG CAPSULE PO SCH ×2 (17:25→22:38)
[2017-06-13] MEDS: THIAMINE HCL 100 MG TABLET (FP) PO SCH (22:39)
[2017-06-14] MEDS: chlordiazePOXIDE 5 MG CAPSULE PO SCH ×2 (05:57→10:41)
[2017-06-14] MEDS: QUEtiapine FUMARATE 100 MG TABLET (FP) PO SCH ×2 (05:57→14:44)
[2017-06-14] MEDS: ELVITEG/COB/EMTRI/TENOF (GENVOYA) TABLET (NF) PO SCH (10:39)
[2017-06-14] MEDS: PRENATAL VITAMINS W/ FOLIC ACID TABLET (FP) PO SCH (10:39)
--- NOTE | 2017-06-14 10:56 | PN ---
BHS Progress Note (SOAP) Subjective: i feel good sweats Objective: 06/14/17 10:55 Vital Signs Temperature 98.2 F 06/14/17 06:00 Pulse Rate 80 06/14/17 06:00 Respiratory Rate 18 06/14/17 06:00 Blood Pressure 107/55 06/14/17 06:00 O2 Sat by Pulse Oximetry (%) aaox3 ambulating no acute distress Assessment: 06/14/17 10:55 mild withdrawal sx Plan: continue detox d/c in am
--- NOTE | 2017-06-14 12:36 | PN ---
BHS Progress Note Note: pt states she not experiencing any withdrawals and will be willing to go to rehab today. will d/c today to go to rehab.
--- NOTE | 2017-06-14 12:38 | DS ---
[facility] Detox Discharge Summary Admission Date: 06/11/17 Discharge Date: 06/14/17 - History Present History: Alcohol Dependence, Cocaine Dependence - Physical Exam Results Vital Signs: Vital Signs Temperature 98.1 F 06/14/17 11:16 Pulse Rate 85 06/14/17 11:16 Respiratory Rate 16 06/14/17 11:16 Blood Pressure 108/74 06/14/17 11:16 O2 Sat by Pulse Oximetry (%) - Treatment Hospital Course: Detox Protocol Followed, Detoxed Safely, Responded well, Discharged Condition Good, Rehab Referral Accepted - Medication Discharge Medications: Ambulatory Orders Elviteg/Cob/Emtri/Tenof Alafen [Genvoya Tablet] 1 each PO DAILY 01/25/17 Quetiapine Fumarate [Seroquel -] 100 mg PO TID 01/28/17 - Diagnosis (1) Nicotine dependence Current Visit: Yes Status: Chronic Qualifiers: Nicotine product type: cigarettes Substance use status: uncomplicated Qualified Code(s): F17.210 - Nicotine dependence, cigarettes, uncomplicated (2) Alcohol dependence with uncomplicated withdrawal Current Visit: Yes Status: Chronic (3) Cocaine dependence, uncomplicated Current Visit: Yes Status: Chronic (4) HIV (human immunodeficiency virus infection) Current Visit: Yes Status: Chronic - AMA Did Patient Leave Against Medical Advice: No (going to [facility])
[2017-06-14 13:57] VITALS: BP 111/58; PULSE 92; TEMP 97.1
--- NOTE | 2017-06-14 15:26 | HP ---
Psychiatrist Admission - Data Date of interview: 06/14/17 Admission source: [address] [place] [address] Identifying data: This is the first admission to [address] [place] [address] for this 46 years old H female Medical History: Significant for HIV+. Psychiatric History: Patient reports being diagnosed with Schizophrenia.She sees psychiatrist at [facility].Current medications :Seroquel 100 mg po tid. Vital Signs: Vital Signs - 24 hr 06/13/17 06/13/17 06/13/17 15:24 17:44 21:47 Temperature 98.2 F 98.0 F 97.7 F Pulse Rate 91 H 81 99 H Respiratory 18 16 16 Rate Blood Pressure 110/72 109/65 123/62 06/14/17 06/14/17 06/14/17 00:30 06:00 11:16 Temperature 98.2 F 98.1 F Pulse Rate 80 85 Respiratory 18 18 16 Rate Blood Pressure 107/55 108/74 06/14/17 13:56 Temperature 97.1 F L Pulse Rate 92 H Respiratory 18 Rate Blood Pressure 111/58 Allergies/Adverse Reactions: Allergies Allergy/AdvReac Type Severity Reaction Status Date / Time No Known Allergies Allergy Verified 06/11/17 10:32 Date of last physical exam: 06/11/17 Concur with the findings of this exam: Yes - Substance Abuse/Tx History Hx Alcohol Use: Yes Hx Substance Use: Yes Substance Use Type: Alcohol, Cocaine Hx Substance Use Treatment: Yes Mental Status Exam - Mental Status Exam Alert and Oriented to: Time, Place, Person Cognitive Function: Grossly Intact Patient Appearance: Well Groomed Mood: Euthymic Affect: Mood Congruent Patient Behavior: Appropriate, Cooperative Speech Pattern: Clear Voice Loudness: Normal Thought Process: Goal Oriented Thought Disorder: Being Controlled Hallucinations: Denies Suicidal Ideation: Denies Homicidal Ideation: Denies Insight/Judgement: Fair Sleep: Fair Appetite: Fair Muscle strength/Tone: Normal Gait/Station: Normal Psychiatric Findings - Problem List ([place] 1, 2,3) (1) Cocaine dependence, uncomplicated Status: Chronic (2) HIV (human immunodeficiency virus infection) Status: Chronic (3) Nicotine dependence Status: Chronic Qualifiers: Nicotine product type: cigarettes Substance use status: uncomplicated Qualified Code(s): F17.210 - Nicotine dependence, cigarettes, uncomplicated (4) Schizophrenia Status: Chronic Comment: Self reports. Is prescribed seroquel 100mg TID. (5) Alcohol dependence Status: Chronic - Initial Treatment Plan Initial Treatment Plan: Continue Seroquel 100 mg po tid. will monitor progress.
[2017-06-14] MEDS ORDERED: chlordiazePOXIDE HCL 10 MG CAPSULE PO SCH (17:00)
[2017-06-14] MEDS ORDERED: QUEtiapine FUMARATE 100 MG TABLET (FP) PO SCH (22:00)
== END 2017-06-14 15:15 | disposition other institution (70) | DRG 774 ==
LOC: YASAS 08:27 → Y6N 12:42
PROVIDERS: ADMIT Internal Medicine; ATTEND Internal Medicine
PROC: HZ2ZZZZ Detoxification Services for Substance Abuse Treatment (ICD-10-PCS; principal; 2017-06-11)
DX: F10.230 Alcohol dependence with withdrawal, uncomplicated (principal); F17.210 Nicotine dependence, cigarettes, uncomplicated; F14.20 Cocaine dependence, uncomplicated; F20.9 Schizophrenia, unspecified; Z21 Asymptomatic human immunodeficiency virus [HIV] infection status
CPT/HCPCS: 36415; 80053; 81003; 85027; 86593; 93005; 93010

== ENCOUNTER 2017-06-14 15:34 | Inpatient (IN) | payer OTHER ==
[2017-06-14] MEDS ORDERED: MAG HYDROX/AL HYDROX/SIMETH 30 ML UNIT-DOSE CUP PO PRN (19:17)
[2017-06-14] MEDS ORDERED: MAGNESIUM HYDROX 2400MG/30ML ORAL SUSPENSION 30 ML CUP PO PRN (19:17)
[2017-06-14] MEDS ORDERED: MAGNESIUM CITRATE 300 ML BOTTLE PO PRN (19:17)
[2017-06-14] MEDS ORDERED: MENTHOL/PHENOL 1 EACH UD MM PRN (19:17)
[2017-06-14] MEDS ORDERED: guaiFENesin/D-METHORPHAN HB 10 ML UNIT-DOSE CUPS PO PRN (19:17)
[2017-06-14] MEDS ORDERED: P-EPHED 60MG/TRIPROLIDI 2.5MG TABLET PO PRN (19:17)
[2017-06-14] MEDS ORDERED: IBUPROFEN 400 MG TABLET (FP) PO PRN (19:17)
[2017-06-14] MEDS ORDERED: ACETAMINOPHEN 325 MG TABLET (FP) PO PRN (19:17)
[2017-06-14] MEDS ORDERED: LOPERAMIDE HCL 2 MG CAPSULE PO PRN (19:17)
[2017-06-14] MEDS ORDERED: hydrOXYzine PAMOATE 50 MG CAPSULE (FP) PO PRN (19:17)
[2017-06-14] MEDS ORDERED: NICOTINE POLACRILEX 4 MG GUM BUC PRN (19:20)
--- NOTE | 2017-06-14 19:22 | HP ---
[facility] Rehab Assess/Revision - Admission History Admitted to Rehab from: [facility] [place] Date of Admission to Rehab: 06/14/17 - Findings Detox History & Physical reviewed: Yes Concur with findings: Yes Comments/Additional Findings: CONCUR WITH H/P FINDINGS. ADMIT TO REHAB. Inpatient Rehab Admission - Initial Determination Are CD services needed?: Yes Free of communicable disease: No Not in need of hospitalization: Yes - Rehab Admission Criteria Previous failed treatment: Yes Poor recovery environment: Yes Comorbidities: Yes Lacks judgement: Yes Patient is meeting Inpatient Rehab admission criteria:: Yes
[2017-06-14] MEDS: QUEtiapine FUMARATE 100 MG TABLET (FP) PO SCH (21:49)
[2017-06-14] MEDS ORDERED: THIAMINE HCL 100 MG TABLET (FP) PO SCH (22:00)
[2017-06-15] MEDS: QUEtiapine FUMARATE 100 MG TABLET (FP) PO SCH (06:22)
[2017-06-15 07:24] VITALS: BP 115/64; PULSE 77; TEMP 97.2
[2017-06-15] MEDS ORDERED: PRENATAL VITAMINS W/ FOLIC ACID TABLET (FP) PO SCH (10:00)
[2017-06-15] MEDS ORDERED: PATIENT'S OWN MEDICATION (NON-FORMULARY) (Elviteg/Cob/Emtri/Tenof Alafen 1 EACH) PO SCH (10:00)
[2017-06-15] MEDS ORDERED: NICOTINE 21 MG/24 HOURS TOPICAL PATCH TD SCH (10:00)
== END 2017-06-15 10:50 | disposition left against medical advice (07) | DRG 770 ==
LOC: YASAS 15:34 → Y3W 15:35
PROVIDERS: ADMIT Psychiatry & Neurology Psychiatry; ATTEND Psychiatry & Neurology Psychiatry
PROC: HZ42ZZZ Group Counseling for Substance Abuse Treatment, Cognitive-Behavioral (ICD-10-PCS; principal; 2017-06-14)
DX: F10.20 Alcohol dependence, uncomplicated (principal); F14.20 Cocaine dependence, uncomplicated; F17.210 Nicotine dependence, cigarettes, uncomplicated; F20.9 Schizophrenia, unspecified; Z21 Asymptomatic human immunodeficiency virus [HIV] infection status

== ENCOUNTER 2018-04-30 11:36 | Inpatient (IN) | payer OTHER ==
[2018-04-30 12:14] VITALS: BMI 22.3
--- NOTE | 2018-04-30 14:39 | HP ---
CIWA Score Nausea/Vomitin Muscle Tremors: 2 Anxiety: 2 Agitation: 2 Paroxysmal Sweats: 1-Minimal Palms Moist Orientation: 0-Oriented Tacttile Disturbances: 1-Very Mild Itch/Numbness Auditory Disturbances: 1-Very Mild Visual Disturbances: 0-None Headache: 2-Mild CIWA-Ar Total Score: 13 - Admission Criteria OASAS Guidelines: Admission for Medically Managed Detox: Requires at least one of the followin. CIWA greater than 12 2. Seizures within the past 24 hours 3. Delirium tremens within the past 24 hours 4. Hallucinations within the past 24 hours 5. Acute intervention needed for co occurring medical disorder 6. Acute intervention needed for co occurring psychiatric disorder 7. Severe withdrawal that cannot be handled at a lower level of care (continued vomiting, continued diarrhea, abnormal vital signs) requiring intravenous medication and/or fluids 8. Patient presents the following: CIWA greater than 12 Admission Criteria Met: Admission criteria met Admission ROS S - HPI Chief Complaint: i need help to stop drinking alcohol,cocaine Allergies/Adverse Reactions: Allergies Allergy/AdvReac Type Severity Reaction Status Date / Time No Known Allergies Allergy Verified 04/30/18 12:26 History of Present Illness: this 47 years old female with alcohol and cocaine dependence,seeking detox, withdrawal symptom,last detox 06/11/17 to 06/14/17 ,[facility],rehab 06/14/17 to 06/15 not completed syncope alcohol related hiv since 2006 schizophrenia and bipolar no significant period of sobriety weight loss Exam Limitations: No Limitations - Ebola screening Have you traveled outside of the country in the last 21 days: No Have you had contact with anyone from an Ebola affected area: No Have you been sick,other than usual withdrawal symptoms: No Do you have a fever: No - Review of Systems Constitutional: Loss of Appetite, Malaise, Night Sweats, Changes in sleep, Weakness, Unintentional Wgt. Loss EENT: reports: Nose Congestion Respiratory: reports: No Symptoms reported Cardiac: reports: No Symptoms Reported GI: reports: Diarrhea, Nausea, Vomiting, Abdominal cramping : reports: No Symptoms Reported Musculoskeletal: reports: Back Pain, Muscle Pain Integumentary: reports: Dryness Neuro: reports: Headache, Tremors Endocrine: reports: No Symptoms Reported Hematology: reports: No Symptoms Reported, Other (hiv) Psychiatric: reports: No Sypmtoms Reported, Judgement Intact, Mood/Affect Appropiate, Orientated x3, other (schizophrenia) Patient History - Patient Medical History Hx Anemia: No Hx Asthma: No Hx Chronic Obstructive Pulmonary Disease (COPD): No Hx Cancer: No Hx Cardiac Disorders: No Hx Congestive Heart Failure: No Hx Hypertension: No Hx Hypercholesterolemia: No Hx Pacemaker: No HX Cerebrovascular Accident: No Hx Seizures: No Hx Dementia: No Hx Diabetes: No Hx Gastrointestinal Disorders: No Hx Liver Disease: No Hx Genitourinary Disorders: No Hx Sexually Transmitted Disorders: No Hx Renal Disease (ESRD): No Hx Thyroid Disease: No Hx Human Immunodeficiency Virus (HIV): Yes (since 2006 currently on Gyemvoya) Hx Hepatitis C: No Hx Depression: Yes Hx Suicide Attempt: No Hx Bipolar Disorder: No Hx Schizophrenia: Yes Other Medical History: no suicidal,no homicidl - Patient Surgical History Past Surgical History: No Hx Neurologic Surgery: No Hx Cataract Extraction: No Hx Cardiac Surgery: No Hx Lung Surgery: No Hx Breast Surgery: No Hx Breast Biopsy: No Hx Abdominal Surgery: No Hx Appendectomy: No Hx Cholecystectomy: No Hx Genitourinary Surgery: No Hx Section: No Hx Orthopedic Surgery: No Anesthesia Reaction: No - PPD History Previous Implant?: Yes Documented Results: Negative w/proof Implanted On Prior [facility] Admission?: Yes Date: 01/27/17 Results: 0 mm PPD to be Administered?: Yes - Reproductive History Patient is a Female of Child Bearing Age (11 -55 yrs old): Yes Last Menstrual Period: 04/04/17 Patient : No - Smoking Cessation Smoking history: Current every day smoker Have you smoked in the past 12 months: Yes Aproximately how many cigarettes per day: 20 Cigars Per Day: 0 Hx Chewing Tobacco Use: No Initiated information on smoking cessation: Yes 'Breaking Loose' booklet given: 04/30/18 - Substance & Tx. History Hx Alcohol Use: Yes Hx Substance Use: Yes Substance Use Type: Alcohol, Cocaine Hx Substance Use Treatment: Yes ([facility] 06/11/17 to 06/14/17 ,rehab 06/14/17 to not completed) - Substances Abused Crack Route: Smoking Frequency: Daily Amount used: $300 Age of first use: 22 Date of Last Use: 04/29/18 Alcohol-vodka Route: Oral Frequency: Daily Amount used: 2 pts. Age of first use: 17 Date of Last Use: 04/29/18 Family Disease History - Family Disease History Family Disease History: Diabetes: Father (), Other: Father Admission Physical Exam [facility] - Vital Signs Vital Signs: Vital Signs - 24 hr 04/30/18 12:11 Temperature 98.2 F Pulse Rate 75 Respiratory 20 Rate Blood Pressure 116/73 - Physical General Appearance: Yes: Moderate Distress, Tremorous, Irritable, Sweating, Anxious HEENTM: Yes: Normal ENT Inspection, ABEL, Pharynx Normal Respiratory: Yes: Within Normal Limits, Lungs Clear, Normal Breath Sounds Neck: Yes: Within Normal Limits, Supple, Trachea in good position Breast: Yes: Breast Exam Deferred Cardiology: Yes: Within Normal Limits, Regular Rhythm, Regular Rate, S1, S2 Abdominal: Yes: Within Normal Limits, Normal Bowel Sounds, Non Tender, Flat, Soft Genitourinary: Yes: Within Normal Limits Back: Yes: Muscle Spasm Musculoskeletal: Yes: Back pain, Muscle Pain Neurological: Yes: perinatal educator II-XII NML intact, Fully Oriented, Alert, Motor Strength 5/5 Integumentary: Yes: Dry Lymphatic: Yes: Within Normal Limits - Diagnostic (1) Alcohol dependence with uncomplicated withdrawal Current Visit: Yes Status: Acute (2) Cocaine dependence, uncomplicated Current Visit: Yes Status: Chronic (3) HIV (human immunodeficiency virus infection) Current Visit: No Status: Chronic (4) Nicotine dependence Current Visit: Yes Status: Chronic Qualifiers: Nicotine product type: cigarettes Substance use status: uncomplicated Qualified Code(s): F17.210 - Nicotine dependence, cigarettes, uncomplicated (5) Schizophrenia Current Visit: Yes Status: Chronic Comment: Self reports. Is prescribed seroquel 100mg TID. (6) Weight loss Current Visit: Yes Status: Acute Cleared for Admission [facility] - Detox or Rehab [facility] Level of Care: Medically Managed Detox Regimen/Protocol: Librium [facility] Breath Alcohol Content Breath Alcohol Content: 0 Urine Pregancy Test - Result Urine Test Results: Negative- NO Line Present Urine Drug Screen - Results Drug Screen Negative: No Urine Drug Screen Results: LAURA-Cocaine
[2018-04-30] MEDS ORDERED: ACETAMINOPHEN 325 MG TABLET (FP) PO PRN (14:45)
[2018-04-30] MEDS ORDERED: IBUPROFEN 400 MG TABLET (FP) PO PRN (14:45)
[2018-04-30] MEDS ORDERED: LOPERAMIDE HCL 2 MG CAPSULE PO PRN (14:45)
[2018-04-30] MEDS ORDERED: chlordiazePOXIDE HCL 25 MG CAPSULE PO PRN (14:45)
[2018-04-30] MEDS ORDERED: P-EPHED 60MG/TRIPROLIDI 2.5MG TABLET PO PRN (14:45)
[2018-04-30] MEDS ORDERED: hydrOXYzine PAMOATE 25 MG CAPSULE (FP) PO PRN (14:45)
[2018-04-30] MEDS ORDERED: MAGNESIUM HYDROX 2400MG/30ML ORAL SUSPENSION 30 ML CUP PO PRN (14:45)
[2018-04-30] MEDS ORDERED: MAGNESIUM CITRATE 300 ML BOTTLE PO PRN (14:45)
[2018-04-30] MEDS ORDERED: MAG HYDROX/AL HYDROX/SIMETH 30 ML UNIT-DOSE CUP PO PRN (14:45)
[2018-04-30] MEDS ORDERED: MENTHOL/PHENOL 1 EACH UD MM PRN (14:45)
[2018-04-30] MEDS ORDERED: guaiFENesin/D-METHORPHAN HB 10 ML UNIT-DOSE CUPS PO PRN (14:45)
[2018-04-30] MEDS: chlordiazePOXIDE HCL 25 MG CAPSULE PO SCH ×2 (17:30→22:21)
[2018-04-30] MEDS ORDERED: MELATONIN 5 MG TABLETS PO PRN (22:00)
[2018-04-30] MEDS: THIAMINE HCL 100 MG TABLET (FP) PO SCH (22:21)
[2018-05-01] MEDS: chlordiazePOXIDE HCL 25 MG CAPSULE PO SCH ×4 (05:44→22:22)
--- NOTE | 2018-05-01 09:00 | CONSULT ---
[facility] Psychiatric Consult - Data Date of interview: 05/01/18 Admission source: [facility] Identifying data: Patient is a 47 year old single female, mother of two, unemployed, domiciled and is supported by public assistance. This is one of multiple admissions for patient. Patient admitted to for alcohol and cocaine dependence. Substance Abuse History: Smoking Cessation. Smoking history: Current every day smoker. Have you smoked in the past 12 months: Yes. Aproximately how many cigarettes per day: 20. Cigars Per Day: 0. Hx Chewing Tobacco Use: No. Initiated information on smoking cessation: Yes. 'Breaking Loose' booklet given : 04/30/18. - Substance & Tx. History. Hx Alcohol Use: Yes. Hx Substance Use : Yes. Substance Use Type: Alcohol, Cocaine. Hx Substance Use Treatment: Yes ( [facility] 06/11/17 to 06/14/17 ,rehab 06/14/17 to 06/15/17 not completed). - Substances Abused. Crack. Route: Smoking. Frequency: Daily. Amount used: $300. Age of first use: 22. Date of Last Use: 04/29/18. Alcohol-vodka. Route: Oral. Frequency: Daily. Amount used: 2 pts. Age of first use: 17. Date of Last Use: 04/29/18 Medical History: HIV Psychiatric History: Patient denies h/o psychiatric hospitalizations. States she was first diagnosed with schizophrenia, bipolar type in 2006 by an outpatient psychiatrist. Current outpatient psychiatric care is provided at [facility]. Patient is prescribed seroquel 100mg TID although she reports sub-optimal adherence to medications. Reports most recently taking medications two days ago. Ms. Jean-Baptiste denies h/o suicide attempt. No psychosis noted. At present she reports feeling fine but is experiencing difficulty sleeping. Physical/Sexual Abuse/Trauma History: Denies. Mental Status Exam - Mental Status Exam Alert and Oriented to: Time, Place, Person Cognitive Function: Good Patient Appearance: Well Groomed Mood: Euthymic Affect: Appropriate Patient Behavior: Appropriate, Cooperative Speech Pattern: Clear, Appropriate Voice Loudness: Normal Thought Process: Intact, Goal Oriented Thought Disorder: Not Present Hallucinations: Denies Suicidal Ideation: Denies Homicidal Ideation: Denies Insight/Judgement: Poor Sleep: Poorly Appetite: Fair Muscle strength/Tone: Normal Gait/Station: Normal Psychiatric Findings - Problem List ([place] 1, 2,3) (1) Alcohol dependence with uncomplicated withdrawal Current Visit: Yes Status: Acute (2) Cocaine dependence, uncomplicated Current Visit: Yes Status: Chronic (3) Schizophrenia Current Visit: Yes Status: Chronic Comment: Self reports. Is prescribed seroquel 100mg TID. (4) Insomnia Current Visit: Yes Status: Acute (5) Nicotine dependence Current Visit: Yes Status: Chronic Qualifiers: Nicotine product type: cigarettes Substance use status: uncomplicated Qualified Code(s): F17.210 - Nicotine dependence, cigarettes, uncomplicated - Initial Treatment Plan Initial Treatment Plan: Psychoeducation provided. Detoxificiation in progress. Will order Seroquel 100mg BID (reduce dosage). Benefits and side effects discussed. Verbal consent given.
[2018-05-01 10:22] LABS: HEMATOCRIT 42.1 % (32.4-45.2); HEMOGLOBIN 13.7 GM/dL (10.7-15.3); MCH 29.8 pg (25.7-33.7); MCHC 32.4 g/dl (32.0-36.0); MEAN CELL VOLUME 91.8 fl (80-96); MEAN PLT VOLUME 9.2 fl (7.5-11.1); PLATELET COUNT 272 K/MM3 (134-434); RBC 4.59 M/mm3 (3.60-5.2); RDW 12.1 % (11.6-15.6); WHITE BLOOD COUNT 3.7 K/mm3 (4.0-10.0)
[2018-05-01] MEDS: PRENATAL VITAMINS W/ FOLIC ACID TABLET (FP) PO SCH (10:46)
[2018-05-01] MEDS: QUEtiapine FUMARATE 100 MG TABLET (FP) PO SCH ×2 (10:46→22:22)
[2018-05-01] MEDS: ELVITEG/COB/EMTRI/TENOF (GENVOYA) TABLET (NF) PO SCH (10:46)
[2018-05-01 10:53] LABS: ALBUMIN 4.2 g/dl (3.4-5.0); ALK PHOS 87 U/L (45-117); ANION GAP 9 MMOL/L (8-16); BILIRUBIN,TOTAL 0.5 mg/dL (0.2-1); BLOOD UREA NITROGEN 20 mg/dL (7-18); CALCIUM 9.6 mg/dL (8.5-10.1); CHLORIDE 104 mmol/L (98-107); CO2 25 mmol/L (21-32); CREATININE 1.2 mg/dL (0.55-1.3); GLUCOSE,RANDOM 106 mg/dL (74-106); POTASSIUM 3.6 mmol/L (3.5-5.1); SGOT/AST 31 U/L (15-37); SGPT/ALT 34 U/L (13-61); SODIUM 139 mmol/L (136-145); TOT PROT 8.5 g/dl (6.4-8.2)
--- NOTE | 2018-05-01 14:42 | PN ---
S CIWA - CIWA Score Nausea/Vomitin-Mild Nausea/No Vomiting Muscle Tremors: 4-Moderate,w/Arms Extend Anxiety: 3 Agitation: 2 Paroxysmal Sweats: 1-Minimal Palms Moist Orientation: 1-Uncertain about Date Tacttile Disturbances: 0-None Auditory Disturbances: 0-None Visual Disturbances: 0-None Headache: 1-Very Mild CIWA-Ar Total Score: 13 S Progress Note (SOAP) Subjective: tremor sweat restlessness gi distress Objective: 05/01/18 14:45 Vital Signs Temperature 96.1 F L 05/01/18 13:16 Pulse Rate 82 05/01/18 13:16 Respiratory Rate 18 05/01/18 13:16 Blood Pressure 99/64 05/01/18 13:16 O2 Sat by Pulse Oximetry (%) Laboratory Last Values WBC 3.7 K/mm3 (4.0-10.0) L 05/01/18 06:00 RBC 4.59 M/mm3 (3.60-5.2) 05/01/18 06:00 Hgb 13.7 GM/dL (10.7-15.3) 05/01/18 06:00 Hct 42.1 % (32.4-45.2) 05/01/18 06:00 MCV 91.8 fl (80-96) 05/01/18 06:00 MCH 29.8 pg (25.7-33.7) 05/01/18 06:00 MCHC 32.4 g/dl (32.0-36.0) 05/01/18 06:00 RDW 12.1 % (11.6-15.6) 05/01/18 06:00 Plt Count 272 K/MM3 (134-434) 05/01/18 06:00 MPV 9.2 fl (7.5-11.1) 05/01/18 06:00 Sodium 139 mmol/L (136-145) 05/01/18 06:00 Potassium 3.6 mmol/L (3.5-5.1) 05/01/18 06:00 Chloride 104 mmol/L (98-107) 05/01/18 06:00 Carbon Dioxide 25 mmol/L (21-32) 05/01/18 06:00 Anion Gap 9 MMOL/L (8-16) 05/01/18 06:00 BUN 20 mg/dL (7-18) H 05/01/18 06:00 Creatinine 1.2 mg/dL (0.55-1.3) 05/01/18 06:00 Creat Clearance w eGFR 47.95 (>60) 05/01/18 06:00 Random Glucose 106 mg/dL (74-106) 05/01/18 06:00 Calcium 9.6 mg/dL (8.5-10.1) 05/01/18 06:00 Total Bilirubin 0.5 mg/dL (0.2-1) 05/01/18 06:00 AST 31 U/L (15-37) 05/01/18 06:00 ALT 34 U/L (13-61) 05/01/18 06:00 Alkaline Phosphatase 87 U/L (45-117) 05/01/18 06:00 Total Protein 8.5 g/dl (6.4-8.2) H 05/01/18 06:00 Albumin 4.2 g/dl (3.4-5.0) 05/01/18 06:00 RPR Titer Nonreactive (NONREACTIVE) 05/01/18 06:00 lab noted Assessment: 05/01/18 14:45 withdrawal sx Plan: continue detox
[2018-05-01 17:24] LABS: URINE APPEARANCE CLEAR; URINE BILIRUBIN NEGATIVE (<2.0 mg/dL); URINE COLOR LTYELLOW; URINE GLUCOSE (UA) NEGATIVE (NEGATIVE); URINE KETONE NEGATIVE (NEGATIVE); URINE LEUK ESTERASE NEGATIVE (NEGATIVE); URINE NITRITE NEGATIVE (NEGATIVE); URINE PROTEIN NEGATIVE (NEGATIVE); URINE UROBILINOGEN NEGATIVE mg/dL (0.2-1.0)
[2018-05-01] MEDS: THIAMINE HCL 100 MG TABLET (FP) PO SCH (22:22)
[2018-05-02] MEDS: chlordiazePOXIDE HCL 25 MG CAPSULE PO SCH ×2 (05:57→10:07)
[2018-05-02 09:45] VITALS: BP 85/49; PULSE 84; TEMP 98.3
[2018-05-02] MEDS: ELVITEG/COB/EMTRI/TENOF (GENVOYA) TABLET (NF) PO SCH (10:07)
[2018-05-02] MEDS: QUEtiapine FUMARATE 100 MG TABLET (FP) PO SCH (10:07)
[2018-05-02] MEDS: PRENATAL VITAMINS W/ FOLIC ACID TABLET (FP) PO SCH (10:07)
[2018-05-02] MEDS ORDERED: NAPROXEN 375 MG TABLET (FP) PO SCH (10:45)
[2018-05-02] MEDS ORDERED: GABAPENTIN 300 MG CAPSULE (FP) PO SCH (10:45)
[2018-05-02] MEDS ORDERED: chlordiazePOXIDE 5 MG CAPSULE PO SCH (17:00)
--- NOTE | 2018-05-02 17:24 | PN ---
S CIWA - CIWA Score Nausea/Vomitin-No Nausea/No Vomiting Muscle Tremors: None Anxiety: 4-Mod. Anxious/Guarded Agitation: 2 Paroxysmal Sweats: No Perspiration Orientation: 0-Oriented Tacttile Disturbances: 0-None Auditory Disturbances: 0-None Visual Disturbances: 0-None Headache: 2-Mild CIWA-Ar Total Score: 8 BHS Progress Note (SOAP) Subjective: PATIENT C/O ANXIETY, RESTLESSNESS, INTERRUPTED SLEEP AND BODY ACHES. Objective: 05/02/18 17:22 Laboratory Tests 05/01/18 05/01/18 05/01/18 06:00 06:00 06:00 WBC 3.7 L RBC 4.59 Hgb 13.7 Hct 42.1 MCV 91.8 MCH 29.8 MCHC 32.4 RDW 12.1 Plt Count 272 MPV 9.2 Sodium 139 Potassium 3.6 Chloride 104 Carbon Dioxide 25 Anion Gap 9 BUN 20 H Creatinine 1.2 Creat Clearance w eGFR 47.95 Random Glucose 106 Calcium 9.6 Total Bilirubin 0.5 AST 31 ALT 34 Alkaline Phosphatase 87 Total Protein 8.5 H Albumin 4.2 Urine Color Urine Appearance Urine pH Ur Specific [place] Urine Protein Urine Glucose (UA) Urine Ketones Urine Blood Urine Nitrite Urine Bilirubin Urine Urobilinogen Ur Leukocyte Esterase RPR Titer Nonreactive 05/01/18 13:05 WBC RBC Hgb Hct MCV MCH MCHC RDW Plt Count MPV Sodium Potassium Chloride Carbon Dioxide Anion Gap BUN Creatinine Creat Clearance w eGFR Random Glucose Calcium Total Bilirubin AST ALT Alkaline Phosphatase Total Protein Albumin Urine Color Ltyellow Urine Appearance Clear Urine pH 6.0 Ur Specific [place] 1.005 L Urine Protein Negative Urine Glucose (UA) Negative Urine Ketones Negative Urine Blood Negative Urine Nitrite Negative Urine Bilirubin Negative Urine Urobilinogen Negative Ur Leukocyte Esterase Negative RPR Titer V/S 6AM BP 99/68, TEMP 97.1, PULSE 76, RR 18 PE: ALERT AND ORIENTED X 3 SKIN WARM AND DRY CAR S1S2 RESP CTA BL EXT FULL ROM, NO EDEMA Assessment: 05/02/18 17:23 WITHDRAWAL SX Plan: CONTINUE DETOX ENCOURAGE FLUIDS WILL CHANGE VISTARIL TO 100MG PO HS INSTEAD OF PRN PATIENT STATES BENADRYL WITH SEROQUEL FOR SLEEP NOTED IN EXTERNAL HX AND PATIENT C/O INSOMNIA CONTINUE TO MONITOR
--- NOTE | 2018-05-02 19:00 | DS ---
[facility] Detox Discharge Summary Admission Date: 04/30/18 Discharge Date: 05/02/18 - History Present History: Alcohol Dependence, Cocaine Dependence Pertinent Past History: Admitted w/ alcohol withdrawal symptoms. - Physical Exam Results Vital Signs: Vital Signs Temperature 98.3 F 05/02/18 09:45 Pulse Rate 84 05/02/18 09:45 Respiratory Rate 16 05/02/18 09:45 Blood Pressure 85/49 L 05/02/18 09:45 O2 Sat by Pulse Oximetry (%) Pertinent Admission Physical Exam Findings: Patient admitted with alcohol withdrawal symptoms. Co-morbidities: crack/ cocaine use disorder, nicotine use disorder, and hx: HIV(+). Laboratory Last Values WBC 3.7 K/mm3 (4.0-10.0) L 05/01/18 06:00 RBC 4.59 M/mm3 (3.60-5.2) 05/01/18 06:00 Hgb 13.7 GM/dL (10.7-15.3) 05/01/18 06:00 Hct 42.1 % (32.4-45.2) 05/01/18 06:00 MCV 91.8 fl (80-96) 05/01/18 06:00 MCH 29.8 pg (25.7-33.7) 05/01/18 06:00 MCHC 32.4 g/dl (32.0-36.0) 05/01/18 06:00 RDW 12.1 % (11.6-15.6) 05/01/18 06:00 Plt Count 272 K/MM3 (134-434) 05/01/18 06:00 MPV 9.2 fl (7.5-11.1) 05/01/18 06:00 Sodium 139 mmol/L (136-145) 05/01/18 06:00 Potassium 3.6 mmol/L (3.5-5.1) 05/01/18 06:00 Chloride 104 mmol/L (98-107) 05/01/18 06:00 Carbon Dioxide 25 mmol/L (21-32) 05/01/18 06:00 Anion Gap 9 MMOL/L (8-16) 05/01/18 06:00 BUN 20 mg/dL (7-18) H 05/01/18 06:00 Creatinine 1.2 mg/dL (0.55-1.3) 05/01/18 06:00 Creat Clearance w eGFR 47.95 (>60) 05/01/18 06:00 Random Glucose 106 mg/dL (74-106) 05/01/18 06:00 Calcium 9.6 mg/dL (8.5-10.1) 05/01/18 06:00 Total Bilirubin 0.5 mg/dL (0.2-1) 05/01/18 06:00 AST 31 U/L (15-37) 05/01/18 06:00 ALT 34 U/L (13-61) 05/01/18 06:00 Alkaline Phosphatase 87 U/L (45-117) 05/01/18 06:00 Total Protein 8.5 g/dl (6.4-8.2) H 05/01/18 06:00 Albumin 4.2 g/dl (3.4-5.0) 05/01/18 06:00 Urine Color Ltyellow 05/01/18 13:05 Urine Appearance Clear 05/01/18 13:05 Urine pH 6.0 (5.0-8.0) 05/01/18 13:05 Ur Specific [place] 1.005 (1.010-1.035) L 05/01/18 13:05 Urine Protein Negative (NEGATIVE) 05/01/18 13:05 Urine Glucose (UA) Negative (NEGATIVE) 05/01/18 13:05 Urine Ketones Negative (NEGATIVE) 05/01/18 13:05 Urine Blood Negative (NEGATIVE) 05/01/18 13:05 Urine Nitrite Negative (NEGATIVE) 05/01/18 13:05 Urine Bilirubin Negative (<2.0 mg/dL) 05/01/18 13:05 Urine Urobilinogen Negative mg/dL (0.2-1.0) 05/01/18 13:05 Ur Leukocyte Esterase Negative (NEGATIVE) 05/01/18 13:05 RPR Titer Nonreactive (NONREACTIVE) 05/01/18 06:00 Labs reviewed. - Treatment Hospital Course: Detox Protocol Followed (Did not complete detox.), Discharged Condition Good (Left unit alert and oriented.) - Medication Discharge Medications: Ambulatory Orders Elviteg/Cob/Emtri/Tenof Alafen [Genvoya Tablet] 1 each PO DAILY 01/25/17 Quetiapine Fumarate [Seroquel -] 100 mg PO Q8H 01/28/17 Gabapentin [Neurontin -] 300 mg PO Q8H 04/30/18 Mirtazapine 7.5 mg PO HS 04/30/18 Multivitamins [Tab-A-Vit -] 1 tab PO DAILY 04/30/18 - AMA Did Patient Leave Against Medical Advice: Yes
[2018-05-03] MEDS ORDERED: chlordiazePOXIDE HCL 10 MG CAPSULE PO SCH (17:00)
== END 2018-05-02 17:49 | disposition left against medical advice (07) | DRG 770 ==
LOC: YASAS 11:36 → Y3N 15:22
PROC: HZ2ZZZZ Detoxification Services for Substance Abuse Treatment (ICD-10-PCS; principal; 2018-04-30)
DX: F10.230 Alcohol dependence with withdrawal, uncomplicated (principal); F14.20 Cocaine dependence, uncomplicated; F17.210 Nicotine dependence, cigarettes, uncomplicated; F20.9 Schizophrenia, unspecified; Z21 Asymptomatic human immunodeficiency virus [HIV] infection status; G47.00 Insomnia, unspecified
CPT/HCPCS: 36415; 80053; 81003; 85027; 86593

== ENCOUNTER 2018-06-06 11:14 | Inpatient (IN) | payer OTHER ==
[2018-06-06 11:32] VITALS: BMI 21.8
--- NOTE | 2018-06-06 11:51 | HP ---
CIWA Score Nausea/Vomitin-No Nausea/No Vomiting Muscle Tremors: 1-None Visible, but [place] Anxiety: 4-Mod. Anxious/Guarded Agitation: 1-Slight > Activity Paroxysmal Sweats: No Perspiration Orientation: 1-Uncertain about Date Tacttile Disturbances: 0-None Auditory Disturbances: 0-None Visual Disturbances: 0-None Headache: 0-None Present CIWA-Ar Total Score: 7 - Admission Criteria OASAS Guidelines: Admission for Medically Managed Detox: Requires at least one of the followin. CIWA greater than 12 2. Seizures within the past 24 hours 3. Delirium tremens within the past 24 hours 4. Hallucinations within the past 24 hours 5. Acute intervention needed for co occurring medical disorder 6. Acute intervention needed for co occurring psychiatric disorder 7. Severe withdrawal that cannot be handled at a lower level of care (continued vomiting, continued diarrhea, abnormal vital signs) requiring intravenous medication and/or fluids 8. Patient presents the following: Acute intervention needed for co-occurring med or psych disorder Admission Criteria Met: Admission criteria met Admission ROS S - HPI Allergies/Adverse Reactions: Allergies Allergy/AdvReac Type Severity Reaction Status Date / Time No Known Allergies Allergy Verified 04/30/18 12:26 History of Present Illness: patient here requesting detox from etoh use , reports latest use 2 days ago , current symptoms as above, daily use 1 pint- 2 pints, reports tremors if not drinking , denies seizures , blackouts, falls , first age of use 17 , longest sobriety 2 years after detox and rehab , relapse 2001 , most recent detox 2 mo ago at this facility . cocaine : 300 $ /day denies ivdu , first age of use 17 tobacco : 1 ppd since age 17 PMHX : HIV dx 2006 ( [facility]f= [facility] ) ID clinic [facility] latest there 2 mo ago , latest rx 2 mo ago pSHx : denies PSych : insomnia , depression , SAD , bipolar d/o LMP : menopause Shx: lives alone Exam Limitations: No Limitations - Ebola screening Have you traveled outside of the country in the last 21 days: No Have you had contact with anyone from an Ebola affected area: No Have you been sick,other than usual withdrawal symptoms: No Do you have a fever: No - Review of Systems Constitutional: See HPI EENT: reports: Other (denies vision loss, denies dysphagia) Respiratory: reports: No Symptoms reported Cardiac: reports: No Symptoms Reported GI: reports: No Symptoms Reported : reports: No Symptoms Reported Musculoskeletal: reports: No Symptoms Reported Integumentary: reports: No Symptoms Reported Neuro: reports: See HPI Endocrine: reports: No Symptoms Reported Psychiatric: reports: Orientated x3, Agitated, Anxious Patient History - Patient Medical History Hx Anemia: No Hx Asthma: No Hx Chronic Obstructive Pulmonary Disease (COPD): No Hx Cancer: No Hx Cardiac Disorders: No Hx Congestive Heart Failure: No Hx Hypertension: No Hx Hypercholesterolemia: No Hx Pacemaker: No HX Cerebrovascular Accident: No Hx Seizures: No Hx Dementia: No Hx Diabetes: No Hx Gastrointestinal Disorders: No Hx Liver Disease: No Hx Genitourinary Disorders: No Hx Sexually Transmitted Disorders: No Hx Renal Disease (ESRD): No Hx Thyroid Disease: No Hx Human Immunodeficiency Virus (HIV): Yes (since 2006 currently on Gyemvoya) Hx Hepatitis C: No Hx Depression: Yes Hx Suicide Attempt: No Hx Bipolar Disorder: No Hx Schizophrenia: Yes - Patient Surgical History Past Surgical History: No Hx Neurologic Surgery: No Hx Cataract Extraction: No Hx Cardiac Surgery: No Hx Lung Surgery: No Hx Breast Surgery: No Hx Breast Biopsy: No Hx Abdominal Surgery: No Hx Appendectomy: No Hx Cholecystectomy: No Hx Genitourinary Surgery: No Hx Section: No Hx Orthopedic Surgery: No Anesthesia Reaction: No - PPD History Date: 05/02/18 Results: 0 mm - Reproductive History Last Menstrual Period: 04/04/17 - Smoking Cessation Smoking history: Current every day smoker Have you smoked in the past 12 months: Yes Aproximately how many cigarettes per day: 20 Cigars Per Day: 0 Hx Chewing Tobacco Use: No Initiated information on smoking cessation: No - Substances Abused Alcohol Route: Oral Frequency: Daily Amount used: half pint Age of first use: 22 Date of Last Use: 06/05/18 Crack Route: Smoking Frequency: Daily Amount used: 300 hundred dollars Age of first use: 22 Date of Last Use: 06/05/18 Family Disease History - Family Disease History Family Disease History: Diabetes: Father (), Other: Father Admission Physical Exam BHS - Vital Signs Vital Signs: Vital Signs - 24 hr 06/06/18 11:28 Temperature 97.5 F L Pulse Rate 65 Respiratory 18 Rate Blood Pressure 120/78 - Physical General Appearance: Yes: Mild Distress, Irritable, Anxious HEENTM: Yes: Normocephalic, Normal Voice Respiratory: Yes: Chest Non-Tender, Lungs Clear, Normal Breath Sounds Neck: Yes: No masses,lesions,Nodules, Trachea in good position Cardiology: Yes: Regular Rhythm, Regular Rate, S1, S2 Abdominal: Yes: Normal Bowel Sounds, Soft Back: Yes: Normal Inspection Musculoskeletal: Yes: full range of Motion, Gait Steady Extremities: Yes: Normal Capillary Refill, Non-Tender Neurological: Yes: Motor Strength 5/5 - Diagnostic (1) Schizoaffective disorder Current Visit: Yes Status: Chronic Qualifiers: Schizoaffective disorder type: bipolar Qualified Code(s): F25.0 - Schizoaffective disorder, bipolar type (2) Alcohol dependence with uncomplicated withdrawal Current Visit: No Status: Acute (3) Cocaine dependence, uncomplicated Current Visit: No Status: Chronic BHS Breath Alcohol Content Breath Alcohol Content: 0 Urine Drug Screen - Results Drug Screen Negative: No Urine Drug Screen Results: LAURA-Cocaine Inpatient Rehab Admission - Rehab Decision to Admit Inpatient rehab admission?: No
[2018-06-06] MEDS ORDERED: MAGNESIUM HYDROX 2400MG/30ML ORAL SUSPENSION 30 ML CUP PO PRN (12:26)
[2018-06-06] MEDS ORDERED: ACETAMINOPHEN 325 MG TABLET (FP) PO PRN (12:26)
[2018-06-06] MEDS ORDERED: MENTHOL/PHENOL 1 EACH UD MM PRN (12:26)
[2018-06-06] MEDS ORDERED: diazePAM 5 MG TABLET PO PRN (12:26)
[2018-06-06] MEDS ORDERED: NICOTINE POLACRILEX 2 MG GUM BUC PRN (12:26)
[2018-06-06] MEDS ORDERED: MAG HYDROX/AL HYDROX/SIMETH 30 ML UNIT-DOSE CUP PO PRN (12:26)
[2018-06-06] MEDS ORDERED: IBUPROFEN 400 MG TABLET (FP) PO PRN (12:26)
[2018-06-06] MEDS ORDERED: MAGNESIUM CITRATE 300 ML BOTTLE PO PRN (12:26)
--- NOTE | 2018-06-06 14:34 | CONSULT ---
[facility] Psychiatric Consult - Data Date of interview: 06/06/18 Admission source: Self-referred Identifying data: Ms Jean-Baptiste is a 47 years old single Black female, mother of 2 children, unemployed on [employer], domiciled seeking detox treatment for alcohol and cocaine Substance Abuse History: Reports history of alcohol and cocaine use. She started drinking alcohol and smoking crack cocaine at age 22, consumes half a pint of liquor and $300 worth of cocaine daily. Last drank liquor and smoked crack on 06/05/18. Refer to addiction counselor's summary for further information Medical History: Significant for HIV infection since 2006 (on ART medications) . Smokes cigarettes 1 ppd. Psychiatric History: Reports that she was diagnosed with Schizophrenia in 2006 soon after she found out about her HIV status. Reports that she has been on medication ever since. She continues to receive outpatient psychiatric services at [facility] and she is currently on Seroquel 100 mg daily & 200 mg HS, Remeron 7.5 mg po HS and Gabapentin 300 mg po TID. Denies history of previous psychiatric hospitalization or suicidal attempt. At present, reports feeling mildly depressed and sleeping poorly. Requests to take Seroquel 100 mg daily & 200 mg HS in order to sleep better. Denies experiencing psychotic symptoms as well as S/H ideationsat present Physical/Sexual Abuse/Trauma History: Denies history of verbal, physical or sexual abuse as well as DV relationship Mental Status Exam - Mental Status Exam Alert and Oriented to: Time, Place, Person Cognitive Function: Fair Patient Appearance: Well Groomed Mood: Depressed (mildly) Affect: Appropriate Patient Behavior: Cooperative Speech Pattern: Clear Voice Loudness: Normal Thought Process: Intact, Goal Oriented Thought Disorder: Not Present Hallucinations: Denies Suicidal Ideation: Denies Homicidal Ideation: Denies Insight/Judgement: Poor Sleep: Poorly Appetite: Poor Muscle strength/Tone: Normal Gait/Station: Normal Psychiatric Findings - Problem List ([place] 1, 2,3) (1) Schizophrenia Current Visit: No Status: Chronic Comment: Self reports. Is prescribed seroquel 100mg TID. (2) Schizoaffective disorder Current Visit: Yes Status: Acute (3) Schizoaffective disorder Current Visit: Yes Status: Ruled-out (4) Substance induced mood disorder Current Visit: Yes Status: Acute (5) Substance-induced sleep disorder Current Visit: Yes Status: Acute (6) Alcohol dependence with uncomplicated withdrawal Current Visit: No Status: Acute (7) Cocaine dependence, uncomplicated Current Visit: No Status: Acute (8) Nicotine dependence Current Visit: No Status: Chronic Qualifiers: Nicotine product type: cigarettes Substance use status: uncomplicated Qualified Code(s): F17.210 - Nicotine dependence, cigarettes, uncomplicated (9) HIV (human immunodeficiency virus infection) Current Visit: No Status: Chronic - Initial Treatment Plan Initial Treatment Plan: 1) Continue Seroquel 100 mg daily & 200 mg HS, Remeron 7.5 mg po HS and Gabapentin 300 mg po TID. 2) Continue inpatient detoxification
[2018-06-06] MEDS: diazePAM 5 MG TABLET PO SCH ×2 (14:38→22:11)
[2018-06-06] MEDS: GABAPENTIN 300 MG CAPSULE (FP) PO SCH ×2 (16:01→23:03)
[2018-06-06] MEDS ORDERED: MELATONIN 5 MG TABLETS PO PRN (22:00)
[2018-06-06] MEDS: MIRTAZAPINE 15 MG TABLET (FP) PO SCH (22:11)
[2018-06-06] MEDS: THIAMINE HCL 100 MG TABLET (FP) PO SCH (22:11)
[2018-06-06] MEDS: QUEtiapine FUMARATE 200 MG TABLET PO SCH (22:11)
[2018-06-07] MEDS: diazePAM 5 MG TABLET PO SCH ×3 (05:42→22:41)
[2018-06-07] MEDS: GABAPENTIN 300 MG CAPSULE (FP) PO SCH ×3 (07:27→22:41)
[2018-06-07] MEDS: PRENATAL VITAMINS W/ FOLIC ACID TABLET (FP) PO SCH (10:45)
[2018-06-07] MEDS: QUEtiapine FUMARATE 100 MG TABLET (FP) PO SCH (10:47)
[2018-06-07 11:37] LABS: ALBUMIN 3.7 g/dl (3.4-5.0); ALK PHOS 76 U/L (45-117); ANION GAP 5 MMOL/L (8-16); BILIRUBIN,TOTAL 0.4 mg/dL (0.2-1); BLOOD UREA NITROGEN 18 mg/dL (7-18); CALCIUM 9.5 mg/dL (8.5-10.1); CHLORIDE 108 mmol/L (98-107); CO2 29 mmol/L (21-32); CREATININE 1.1 mg/dL (0.55-1.3); GLUCOSE,RANDOM 79 mg/dL (74-106); POTASSIUM 3.7 mmol/L (3.5-5.1); SGOT/AST 10 U/L (15-37); SGPT/ALT 18 U/L (13-61); SODIUM 142 mmol/L (136-145); TOT PROT 7.2 g/dl (6.4-8.2)
[2018-06-07 11:51] LABS: HEMATOCRIT 36.7 % (32.4-45.2); HEMOGLOBIN 12.5 GM/dL (10.7-15.3); MCH 31.2 pg (25.7-33.7); MEAN CELL VOLUME 91.6 fl (80-96); MEAN PLT VOLUME 9.1 fl (7.5-11.1); PLATELET COUNT 251 K/MM3 (134-434); RBC 4.01 M/mm3 (3.60-5.2); RDW 12.7 % (11.6-15.6); WHITE BLOOD COUNT 3.7 K/mm3 (4.0-10.0)
--- NOTE | 2018-06-07 14:26 | PN ---
[facility] CIWA - CIWA Score Nausea/Vomitin-No Nausea/No Vomiting Muscle Tremors: 3 Anxiety: 1-Mildly Anxious Agitation: 4-Moderately Restless Paroxysmal Sweats: 3 Orientation: 0-Oriented Tacttile Disturbances: 0-None Auditory Disturbances: 0-None Visual Disturbances: 0-None Headache: 0-None Present CIWA-Ar Total Score: 11 S Progress Note (SOAP) Subjective: Sweats tremors Objective: 06/07/18 14:23 A & o x 3 Ambulating on unit Vital Signs Temperature 96.4 F L 06/07/18 10:30 Pulse Rate 70 06/07/18 10:30 Respiratory Rate 18 06/07/18 10:30 Blood Pressure 111/70 06/07/18 10:30 O2 Sat by Pulse Oximetry (%) Laboratory Last Values WBC 3.7 K/mm3 (4.0-10.0) L 06/07/18 07:40 RBC 4.01 M/mm3 (3.60-5.2) 06/07/18 07:40 Hgb 12.5 GM/dL (10.7-15.3) 06/07/18 07:40 Hct 36.7 % (32.4-45.2) 06/07/18 07:40 MCV 91.6 fl (80-96) 06/07/18 07:40 MCH 31.2 pg (25.7-33.7) 06/07/18 07:40 MCHC 34.0 g/dl (32.0-36.0) 06/07/18 07:40 RDW 12.7 % (11.6-15.6) 06/07/18 07:40 Plt Count 251 K/MM3 (134-434) 06/07/18 07:40 MPV 9.1 fl (7.5-11.1) 06/07/18 07:40 Sodium 142 mmol/L (136-145) 06/07/18 07:40 Potassium 3.7 mmol/L (3.5-5.1) 06/07/18 07:40 Chloride 108 mmol/L (98-107) H 06/07/18 07:40 Carbon Dioxide 29 mmol/L (21-32) 06/07/18 07:40 Anion Gap 5 MMOL/L (8-16) L 06/07/18 07:40 BUN 18 mg/dL (7-18) 06/07/18 07:40 Creatinine 1.1 mg/dL (0.55-1.3) 06/07/18 07:40 Creat Clearance w eGFR 53.01 (>60) 06/07/18 07:40 Random Glucose 79 mg/dL (74-106) 06/07/18 07:40 Calcium 9.5 mg/dL (8.5-10.1) 06/07/18 07:40 Total Bilirubin 0.4 mg/dL (0.2-1) 06/07/18 07:40 AST 10 U/L (15-37) L 06/07/18 07:40 ALT 18 U/L (13-61) 06/07/18 07:40 Alkaline Phosphatase 76 U/L (45-117) 06/07/18 07:40 Total Protein 7.2 g/dl (6.4-8.2) 06/07/18 07:40 Albumin 3.7 g/dl (3.4-5.0) 06/07/18 07:40 RPR Titer Nonreactive (NONREACTIVE) 06/07/18 07:40 labs noted Assessment: 06/07/18 14:25 Withdrawal sx Plan: Continue detox Ensure BID ordered Encourage hydration
[2018-06-07] MEDS: THIAMINE HCL 100 MG TABLET (FP) PO SCH (22:41)
[2018-06-07] MEDS: QUEtiapine FUMARATE 200 MG TABLET PO SCH (22:41)
[2018-06-07] MEDS: MIRTAZAPINE 15 MG TABLET (FP) PO SCH (22:41)
[2018-06-08] MEDS: GABAPENTIN 300 MG CAPSULE (FP) PO SCH ×3 (07:21→22:38)
[2018-06-08] MEDS ORDERED: diazePAM 5 MG TABLET PO SCH (10:00)
[2018-06-08] MEDS: QUEtiapine FUMARATE 100 MG TABLET (FP) PO SCH (10:23)
[2018-06-08] MEDS: PRENATAL VITAMINS W/ FOLIC ACID TABLET (FP) PO SCH (10:24)
--- NOTE | 2018-06-08 17:39 | PN ---
[facility] CIWA - CIWA Score Nausea/Vomitin-Mild Nausea/No Vomiting Muscle Tremors: 2 Anxiety: 2 Agitation: 2 Paroxysmal Sweats: 2 Orientation: 0-Oriented Tacttile Disturbances: 0-None Auditory Disturbances: 0-None Visual Disturbances: 0-None Headache: 0-None Present CIWA-Ar Total Score: 9 S Progress Note (SOAP) Subjective: Interrupted sleep Objective: 06/08/18 17:33 Last Vital Signs Temp Pulse Resp BP Pulse Ox 96.8 F L 100 H 16 117/67 06/08/18 13:30 06/08/18 13:30 06/08/18 13:30 06/08/18 13:30 Laboratory Tests 06/07/18 06/07/18 06/07/18 07:40 07:40 07:40 WBC 3.7 L RBC 4.01 Hgb 12.5 Hct 36.7 MCV 91.6 MCH 31.2 MCHC 34.0 RDW 12.7 Plt Count 251 MPV 9.1 Sodium 142 Potassium 3.7 Chloride 108 H Carbon Dioxide 29 Anion Gap 5 L BUN 18 Creatinine 1.1 Creat Clearance w eGFR 53.01 Random Glucose 79 Calcium 9.5 Total Bilirubin 0.4 AST 10 L ALT 18 Alkaline Phosphatase 76 Total Protein 7.2 Albumin 3.7 RPR Titer Nonreactive Labs reviewed: AYAN noted Assessment: 06/08/18 17:34 Withdrawal symptoms Noted with AYAN Plan: Continue detox AYAN: encouraged PO water hydration, repeat BMP
[2018-06-08] MEDS: THIAMINE HCL 100 MG TABLET (FP) PO SCH (22:17)
[2018-06-08] MEDS: QUEtiapine FUMARATE 200 MG TABLET PO SCH (22:17)
[2018-06-08] MEDS: MIRTAZAPINE 15 MG TABLET (FP) PO SCH (22:17)
[2018-06-09] MEDS: GABAPENTIN 300 MG CAPSULE (FP) PO SCH (06:45)
[2018-06-09 07:15] VITALS: TEMP 97.2
[2018-06-09] MEDS: QUEtiapine FUMARATE 100 MG TABLET (FP) PO SCH (09:57)
[2018-06-09] MEDS: PRENATAL VITAMINS W/ FOLIC ACID TABLET (FP) PO SCH (09:57)
[2018-06-09 09:59] LABS: ANION GAP 6 MMOL/L (8-16); BLOOD UREA NITROGEN 15 mg/dL (7-18); CALCIUM 9.3 mg/dL (8.5-10.1); CHLORIDE 105 mmol/L (98-107); CO2 27 mmol/L (21-32); GLUCOSE,RANDOM 104 mg/dL (74-106); POTASSIUM 3.8 mmol/L (3.5-5.1); SODIUM 138 mmol/L (136-145)
--- NOTE | 2018-06-09 10:19 | DS ---
[facility] Detox Discharge Summary Admission Date: 06/06/18 Discharge Date: 06/09/18 - History Present History: Alcohol Dependence, Cocaine Dependence - Physical Exam Results Vital Signs: Vital Signs Temperature 97.2 F L 06/09/18 07:14 Pulse Rate 87 06/09/18 07:14 Respiratory Rate 18 06/09/18 07:14 Blood Pressure 107/72 06/09/18 07:14 O2 Sat by Pulse Oximetry (%) - Treatment Hospital Course: Detox Protocol Followed, Detoxed Safely, Responded well, Discharged Condition Good, Rehab Referral Accepted - Medication Discharge Medications: Ambulatory Orders Elviteg/Cob/Emtri/Tenof Alafen [Genvoya Tablet] 1 each PO DAILY 01/25/17 Quetiapine Fumarate [Seroquel -] 100 mg PO Q8H 01/28/17 Gabapentin [Neurontin -] 300 mg PO Q8H 04/30/18 Mirtazapine 7.5 mg PO HS 04/30/18 Multivitamins [Tab-A-Vit -] 1 tab PO DAILY 04/30/18 - Diagnosis (1) Substance induced mood disorder Current Visit: Yes Status: Acute (2) Substance-induced sleep disorder Current Visit: Yes Status: Acute (3) Cocaine dependence, uncomplicated Current Visit: Yes Status: Chronic (4) HIV (human immunodeficiency virus infection) Current Visit: Yes Status: Chronic Qualifiers: HIV symptom status: unspecified Qualified Code(s): B20 - Human immunodeficiency virus [HIV] disease (5) Nicotine dependence Current Visit: Yes Status: Chronic Qualifiers: Nicotine product type: cigarettes Substance use status: uncomplicated Qualified Code(s): F17.210 - Nicotine dependence, cigarettes, uncomplicated (6) Schizoaffective disorder Current Visit: Yes Status: Chronic Qualifiers: Schizoaffective disorder type: bipolar Qualified Code(s): F25.0 - Schizoaffective disorder, bipolar type (7) Alcohol dependence with uncomplicated withdrawal Current Visit: Yes Status: Chronic (8) Drug-induced mood disorder Current Visit: No Status: Acute (9) Insomnia Current Visit: No Status: Acute (10) Weight loss Current Visit: No Status: Acute - AMA Did Patient Leave Against Medical Advice: No (referred to out patient)
[2018-06-09 13:49] VITALS: BP 106/60; PULSE 101
== END 2018-06-09 14:41 | disposition home or self-care (01) | DRG 774 ==
LOC: YASAS 11:14 → Y6N 13:46
PROVIDERS: ADMIT Surgery; ATTEND Surgery
PROC: HZ2ZZZZ Detoxification Services for Substance Abuse Treatment (ICD-10-PCS; principal; 2018-06-06)
DX: F10.230 Alcohol dependence with withdrawal, uncomplicated (principal); F14.20 Cocaine dependence, uncomplicated; F17.210 Nicotine dependence, cigarettes, uncomplicated; F19.24 Other psychoactive substance dependence with psychoactive substance-induced mood disorder; F19.282 Other psychoactive substance dependence with psychoactive substance-induced sleep disorder; F25.9 Schizoaffective disorder, unspecified; Z21 Asymptomatic human immunodeficiency virus [HIV] infection status; G47.00 Insomnia, unspecified; N17.9 Acute kidney failure, unspecified
CPT/HCPCS: 36415; 80048; 80053; 85027; 86593

== ENCOUNTER 2021-06-24 17:39 | Inpatient (IN) | payer OTHER ==
[2021-06-24 20:39] VITALS: BMI 21.2
[2021-06-25] MEDS ORDERED: MAGNESIUM HYDROX 2400MG/30ML ORAL SUSPENSION 30 ML CUP PO PRN (00:53)
[2021-06-25] MEDS ORDERED: METHOCARBAMOL 500 MG TABLET PO PRN (00:53)
[2021-06-25] MEDS ORDERED: BISMUTH SUBSALICYLATE 524 MG/30 ML PO PRN (00:53)
[2021-06-25] MEDS ORDERED: ACETAMINOPHEN 325 MG TABLET (FP) PO PRN ×2 (00:53)
[2021-06-25] MEDS ORDERED: IBUPROFEN 400 MG TABLET (FP) PO PRN (00:53)
[2021-06-25] MEDS ORDERED: LOPERAMIDE HCL 2 MG CAPSULE PO PRN (00:53)
[2021-06-25] MEDS ORDERED: MAG HYDROX/AL HYDROX/SIMETH 30 ML UNIT-DOSE CUP PO PRN (00:53)
[2021-06-25] MEDS ORDERED: ONDANSETRON *ODT* 4 MG TABLET SL PRN (00:53)
[2021-06-25] MEDS ORDERED: MAGNESIUM CITRATE 300 ML BOTTLE PO PRN (00:53)
[2021-06-25] MEDS ORDERED: chlordiazePOXIDE HCL 25 MG CAPSULE PO PRN (00:53)
[2021-06-25] MEDS ORDERED: MENTHOL/PHENOL 1 EACH UD MM PRN (00:53)
[2021-06-25] MEDS: chlordiazePOXIDE HCL 25 MG CAPSULE PO SCH ×4 (04:42→22:25)
[2021-06-25] MEDS: MICONAZOLE NITRATE 200 MG VAGINAL SUPPOSITORY PV SCH ×2 (08:37→22:28)
[2021-06-25] MEDS: QUEtiapine FUMARATE 100 MG TABLET (FP) PO SCH (10:51)
[2021-06-25] MEDS: PRENATAL VITAMINS W/ FOLIC ACID TABLET (FP) PO SCH (10:51)
[2021-06-25] MEDS ORDERED: MICONAZOLE NITRATE 200 MG VAGINAL SUPPOSITORY PV SCH (22:00)
[2021-06-25] MEDS: MELATONIN 5 MG TABLETS PO SCH (22:25)
[2021-06-25] MEDS: QUEtiapine FUMARATE 200 MG TABLET PO SCH (22:25)
[2021-06-25] MEDS: THIAMINE HCL 100 MG TABLET (FP) PO SCH (22:25)
[2021-06-26] MEDS: chlordiazePOXIDE HCL 25 MG CAPSULE PO SCH ×4 (06:48→22:27)
[2021-06-26 10:55] LABS: CALCIUM 8.9 mg/dL (8.5-10.1); HEMATOCRIT 37.2 % (32.4-45.2); HEMOGLOBIN 12.2 GM/dL (10.7-15.3); MCH 30.4 pg (25.7-33.7); MCHC 32.9 g/dl (32.0-36.0); MEAN CELL VOLUME 92.4 fl (80-96); MEAN PLT VOLUME 8.8 fl (7.5-11.1); PLATELET COUNT 283 10^3/uL (134-434); RBC 4.03 M/mm3 (3.60-5.2); RDW 13.8 % (11.6-15.6); WHITE BLOOD COUNT 3.9 K/mm3 (4.0-10.0)
[2021-06-26 10:56] LABS: ALBUMIN 3.2 g/dl (3.4-5.0); BLOOD UREA NITROGEN 19.7 mg/dL (7-18)
[2021-06-26 11:00] LABS: TOT PROT 6.6 g/dl (6.4-8.2)
[2021-06-26 11:01] LABS: BILIRUBIN,TOTAL 0.4 mg/dL (0.2-1)
[2021-06-26] MEDS: QUEtiapine FUMARATE 100 MG TABLET (FP) PO SCH (11:38)
[2021-06-26] MEDS: PRENATAL VITAMINS W/ FOLIC ACID TABLET (FP) PO SCH (11:42)
[2021-06-26] MEDS: QUEtiapine FUMARATE 200 MG TABLET PO SCH (22:27)
[2021-06-26] MEDS: MICONAZOLE NITRATE 200 MG VAGINAL SUPPOSITORY PV SCH (22:27)
[2021-06-26] MEDS: THIAMINE HCL 100 MG TABLET (FP) PO SCH (22:27)
[2021-06-26] MEDS: MELATONIN 5 MG TABLETS PO SCH (22:27)
[2021-06-27] MEDS ORDERED: chlordiazePOXIDE HCL 10 MG CAPSULE PO PRN
[2021-06-27] MEDS: chlordiazePOXIDE HCL 10 MG CAPSULE PO SCH ×4 (05:54→22:22)
[2021-06-27] MEDS: PRENATAL VITAMINS W/ FOLIC ACID TABLET (FP) PO SCH (10:47)
[2021-06-27] MEDS: QUEtiapine FUMARATE 100 MG TABLET (FP) PO SCH (10:48)
[2021-06-27] MEDS ORDERED: NAPROXEN 500 MG TABLET PO PRN (12:59)
[2021-06-27 14:07] LABS: SARS-CoV-2 NAA Not Detected (Not Detected)
[2021-06-27] MEDS ORDERED: NAPROXEN 500 MG PO PRN ×2 (14:28→14:33)
[2021-06-27] MEDS: [UNRECOGNIZED DRUG - OTHER] PO SCH (15:17)
[2021-06-27] MEDS: THIAMINE HCL 100 MG TABLET (FP) PO SCH (22:21)
[2021-06-27] MEDS: MELATONIN 5 MG TABLETS PO SCH (22:21)
[2021-06-27] MEDS: QUETIAPINE FUMARATE 200 MG PO SCH (22:22)
[2021-06-27] MEDS: MICONAZOLE NITRATE 200 MG VAGINAL SUPPOSITORY PV SCH (23:04)
[2021-06-28] MEDS: chlordiazePOXIDE HCL 10 MG CAPSULE PO SCH ×2 (05:30→17:15)
[2021-06-28] MEDS: [UNRECOGNIZED DRUG - OTHER] PO SCH (07:08)
[2021-06-28] MEDS ORDERED: PATIENT'S OWN MEDICATION (NON-FORMULARY) (Elviteg/Cob/Emtri/Tenof Alafen 1 TAB Tablet) PO SCH (10:00)
[2021-06-28] MEDS: PRENATAL VITAMINS W/ FOLIC ACID TABLET (FP) PO SCH (10:19)
[2021-06-28] MEDS: QUEtiapine FUMARATE 100 MG TABLET (FP) PO SCH (10:19)
[2021-06-28 17:03] VITALS: TEMP 97.8
[2021-06-28] MEDS: MELATONIN 5 MG TABLETS PO SCH (22:15)
[2021-06-28] MEDS: QUETIAPINE FUMARATE 200 MG PO SCH (22:15)
[2021-06-28] MEDS: THIAMINE HCL 100 MG TABLET (FP) PO SCH (22:15)
[2021-06-28] MEDS: MICONAZOLE NITRATE 200 MG VAGINAL SUPPOSITORY PV SCH (22:43)
[2021-06-29] MEDS ORDERED: chlordiazePOXIDE HCL 10 MG CAPSULE PO ONE (05:00)
[2021-06-29 07:09] VITALS: BP 95/59; PULSE 80
[2021-06-29] MEDS: [UNRECOGNIZED DRUG - OTHER] PO SCH (07:29)
== END 2021-06-29 09:36 | disposition home or self-care (01) | DRG 774 ==
LOC: YASAS 17:39 → Y3N 06-25 02:22
PROVIDERS: ADMIT Allergy & Immunology; ATTEND Allergy & Immunology
PROC: HZ2ZZZZ Detoxification Services for Substance Abuse Treatment (ICD-10-PCS; principal; 2021-06-25)
DX: F10.230 Alcohol dependence with withdrawal, uncomplicated (principal); F14.20 Cocaine dependence, uncomplicated; F25.0 Schizoaffective disorder, bipolar type; F19.282 Other psychoactive substance dependence with psychoactive substance-induced sleep disorder; Z21 Asymptomatic human immunodeficiency virus [HIV] infection status; G47.00 Insomnia, unspecified; Z87.891 Personal history of nicotine dependence; Z86.19 Personal history of other infectious and parasitic diseases
CPT/HCPCS: 36415; 80053; 81025; 85027; 86593; 86780; 93005; 93010; C9803; U0003; U0005

== ENCOUNTER 2022-03-06 10:05 | Inpatient (IN) | payer OTHER ==
[2022-03-06 10:50] VITALS: BMI 20.4
[2022-03-06] MEDS ORDERED: NICOTINE 10 MG CARTRIDGE (INHALER) IH PRN (12:53)
[2022-03-06] MEDS ORDERED: IBUPROFEN 400 MG TABLET (FP) PO PRN (12:53)
[2022-03-06] MEDS ORDERED: P-EPHED 60MG/TRIPROLIDI 2.5MG TABLET PO PRN (12:53)
[2022-03-06] MEDS ORDERED: hydrOXYzine PAMOATE 25 MG CAPSULE (FP) PO PRN (12:53)
[2022-03-06] MEDS ORDERED: LOPERAMIDE HCL 2 MG CAPSULE PO PRN (12:53)
[2022-03-06] MEDS ORDERED: MAGNESIUM HYDROX 2400MG/30ML ORAL SUSPENSION 30 ML CUP PO PRN (12:53)
[2022-03-06] MEDS ORDERED: MAGNESIUM CITRATE 300 ML BOTTLE PO PRN (12:53)
[2022-03-06] MEDS ORDERED: ACETAMINOPHEN 325 MG TABLET (FP) PO PRN (12:53)
[2022-03-06] MEDS: NICOTINE 7 MG/24 HOURS TOPICAL PATCH TD SCH (15:37)
[2022-03-06] MEDS: PRENATAL VITAMINS W/ FOLIC ACID TABLET (FP) PO SCH (15:37)
[2022-03-06 17:01] LABS: HEMATOCRIT 37.1 % (32.4-45.2); HEMOGLOBIN 12.3 GM/dL (10.7-15.3); MCH 30.2 pg (25.7-33.7); MCHC 33.1 g/dl (32.0-36.0); MEAN CELL VOLUME 91.3 fl (80-96); MEAN PLT VOLUME 9.7 fl (7.5-11.1); PLATELET COUNT 229 10^3/uL (134-434); RBC 4.07 M/mm3 (3.60-5.2); RDW 12.5 % (11.6-15.6); WHITE BLOOD COUNT 3.6 K/mm3 (4.0-10.0)
[2022-03-06 17:11] LABS: ALBUMIN 3.7 g/dl (3.4-5.0)
[2022-03-06 17:12] LABS: BLOOD UREA NITROGEN 21.8 mg/dL (7-18)
[2022-03-06 17:14] LABS: CREATININE 1.2 mg/dL (0.55-1.3)
[2022-03-06 17:16] LABS: BILIRUBIN,TOTAL 0.4 mg/dL (0.2-1); TOT PROT 7.5 g/dl (6.4-8.2)
[2022-03-06 18:05] LABS: SYPHILIS W/ RPR CONF REACTIVE (NONREACTIVE)
[2022-03-06] MEDS: MELATONIN 5 MG TABLETS PO SCH (21:34)
[2022-03-06] MEDS: THIAMINE HCL 100 MG TABLET (FP) PO SCH (21:34)
[2022-03-07] MEDS: NICOTINE 7 MG/24 HOURS TOPICAL PATCH TD SCH (10:05)
[2022-03-07] MEDS: PRENATAL VITAMINS W/ FOLIC ACID TABLET (FP) PO SCH (10:05)
[2022-03-07] MEDS ORDERED: PNEUMOC 20-VAL CONJ-DIP CRM/PF 0.5 ML SYRINGE IM ONE (12:00)
[2022-03-07] MEDS ORDERED: FLU VACC QS2022-23(6MOS UP)/PF 60 MCG/0.5 ML SYRINGE IM ONE (12:00)
[2022-03-07 15:37] LABS: PH,URINE 7.5 (5.0-8.0); URINE APPEARANCE CLEAR; URINE BILIRUBIN NEGATIVE (NEGATIVE); URINE COLOR YELLOW; URINE GLUCOSE (UA) NEGATIVE (NEGATIVE); URINE KETONE NEGATIVE (NEGATIVE); URINE LEUK ESTERASE NEGATIVE (NEGATIVE); URINE NITRITE NEGATIVE (NEGATIVE); URINE PROTEIN NEGATIVE (NEGATIVE); URINE UROBILINOGEN 0.2 mg/dL (0.2-1.0)
[2022-03-07] MEDS: ELVITEG/COB/EMTRI/TENOF (GENVOYA) TABLET (NF) PO SCH (16:38)
[2022-03-07] MEDS: GABAPENTIN 300 MG CAPSULE PO SCH (21:33)
[2022-03-07] MEDS: THIAMINE HCL 100 MG TABLET (FP) PO SCH (21:33)
[2022-03-07] MEDS: MELATONIN 5 MG TABLETS PO SCH (21:33)
[2022-03-07] MEDS: metroNIDAZOLE 0.75% VAGINAL GEL 70 GM TUBE VG SCH (21:43)
[2022-03-07] MEDS ORDERED: QUEtiapine FUMARATE 200 MG TABLET PO SCH (22:00)
[2022-03-08] MEDS: ELVITEG/COB/EMTRI/TENOF (GENVOYA) TABLET (NF) PO SCH (07:15)
[2022-03-08] MEDS ORDERED: QUEtiapine FUMARATE 100 MG TABLET (FP) PO SCH (10:00)
[2022-03-08] MEDS: PRENATAL VITAMINS W/ FOLIC ACID TABLET (FP) PO SCH (10:34)
[2022-03-08] MEDS: NICOTINE 7 MG/24 HOURS TOPICAL PATCH TD SCH (10:35)
[2022-03-08] MEDS: GABAPENTIN 300 MG CAPSULE PO SCH ×2 (10:35→21:30)
[2022-03-08] MEDS: THIAMINE HCL 100 MG TABLET (FP) PO SCH (21:30)
[2022-03-08] MEDS: QUEtiapine FUMARATE 100 MG TABLET (FP) PO SCH (21:33)
[2022-03-08] MEDS: metroNIDAZOLE 0.75% VAGINAL GEL 70 GM TUBE VG SCH (21:52)
[2022-03-08] MEDS: MELATONIN 5 MG TABLETS PO SCH (21:52)
[2022-03-09] MEDS: ELVITEG/COB/EMTRI/TENOF (GENVOYA) TABLET (NF) PO SCH (07:24)
[2022-03-09] MEDS: PRENATAL VITAMINS W/ FOLIC ACID TABLET (FP) PO SCH (10:28)
[2022-03-09] MEDS: NICOTINE 7 MG/24 HOURS TOPICAL PATCH TD SCH (10:28)
[2022-03-09] MEDS: GABAPENTIN 300 MG CAPSULE PO SCH ×2 (10:28→21:53)
[2022-03-09] MEDS: QUEtiapine FUMARATE 50 MG TABLET PO SCH (10:28)
[2022-03-09] MEDS: QUEtiapine FUMARATE 100 MG TABLET (FP) PO SCH (21:53)
[2022-03-09] MEDS: THIAMINE HCL 100 MG TABLET (FP) PO SCH (21:53)
[2022-03-09] MEDS: MELATONIN 5 MG TABLETS PO SCH (21:53)
[2022-03-09] MEDS: MAG HYDROX/AL HYDROX/SIMETH 30 ML UNIT-DOSE CUP PO PRN (21:54)
[2022-03-09] MEDS: metroNIDAZOLE 0.75% VAGINAL GEL 70 GM TUBE VG SCH (21:57)
[2022-03-10] MEDS: ELVITEG/COB/EMTRI/TENOF (GENVOYA) TABLET (NF) PO SCH (07:03)
[2022-03-10] MEDS: NICOTINE 7 MG/24 HOURS TOPICAL PATCH TD SCH (10:19)
[2022-03-10] MEDS: PRENATAL VITAMINS W/ FOLIC ACID TABLET (FP) PO SCH (10:19)
[2022-03-10] MEDS: GABAPENTIN 300 MG CAPSULE PO SCH ×2 (10:19→21:45)
[2022-03-10] MEDS: QUEtiapine FUMARATE 50 MG TABLET PO SCH (10:19)
[2022-03-10] MEDS: MAG HYDROX/AL HYDROX/SIMETH 30 ML UNIT-DOSE CUP PO PRN (10:21)
[2022-03-10] MEDS: THIAMINE HCL 100 MG TABLET (FP) PO SCH (21:45)
[2022-03-10] MEDS: QUEtiapine FUMARATE 100 MG TABLET (FP) PO SCH (21:45)
[2022-03-10] MEDS: MELATONIN 5 MG TABLETS PO SCH (21:45)
[2022-03-10] MEDS: metroNIDAZOLE 0.75% VAGINAL GEL 70 GM TUBE VG SCH (21:46)
[2022-03-11] MEDS: ELVITEG/COB/EMTRI/TENOF (GENVOYA) TABLET (NF) PO SCH (07:21)
[2022-03-11] MEDS: QUEtiapine FUMARATE 50 MG TABLET PO SCH (10:27)
[2022-03-11] MEDS: PRENATAL VITAMINS W/ FOLIC ACID TABLET (FP) PO SCH (10:27)
[2022-03-11] MEDS: GABAPENTIN 300 MG CAPSULE PO SCH ×2 (10:27→21:44)
[2022-03-11] MEDS: NICOTINE 7 MG/24 HOURS TOPICAL PATCH TD SCH (10:28)
[2022-03-11] MEDS: THIAMINE HCL 100 MG TABLET (FP) PO SCH (21:44)
[2022-03-11] MEDS: MELATONIN 5 MG TABLETS PO SCH (21:44)
[2022-03-11] MEDS: MAG HYDROX/AL HYDROX/SIMETH 30 ML UNIT-DOSE CUP PO PRN (21:45)
[2022-03-11] MEDS: metroNIDAZOLE 0.75% VAGINAL GEL 70 GM TUBE VG SCH (21:46)
[2022-03-11] MEDS: QUEtiapine FUMARATE 100 MG TABLET (FP) PO SCH (23:44)
[2022-03-12] MEDS: ELVITEG/COB/EMTRI/TENOF (GENVOYA) TABLET (NF) PO SCH (07:18)
[2022-03-12] MEDS: QUEtiapine FUMARATE 50 MG TABLET PO SCH (10:28)
[2022-03-12] MEDS: PRENATAL VITAMINS W/ FOLIC ACID TABLET (FP) PO SCH (10:28)
[2022-03-12] MEDS: NICOTINE 7 MG/24 HOURS TOPICAL PATCH TD SCH (10:28)
[2022-03-12] MEDS: GABAPENTIN 300 MG CAPSULE PO SCH ×2 (10:28→21:29)
[2022-03-12] MEDS: QUEtiapine FUMARATE 100 MG TABLET (FP) PO SCH (21:29)
[2022-03-12] MEDS: MELATONIN 5 MG TABLETS PO SCH (21:29)
[2022-03-12] MEDS: THIAMINE HCL 100 MG TABLET (FP) PO SCH (21:29)
[2022-03-12] MEDS: MAG HYDROX/AL HYDROX/SIMETH 30 ML UNIT-DOSE CUP PO PRN (22:00)
[2022-03-13] MEDS: ELVITEG/COB/EMTRI/TENOF (GENVOYA) TABLET (NF) PO SCH (07:03)
[2022-03-13] MEDS: QUEtiapine FUMARATE 50 MG TABLET PO SCH (10:35)
[2022-03-13] MEDS: PRENATAL VITAMINS W/ FOLIC ACID TABLET (FP) PO SCH (10:35)
[2022-03-13] MEDS: GABAPENTIN 300 MG CAPSULE PO SCH ×2 (10:35→21:48)
[2022-03-13] MEDS: NICOTINE 7 MG/24 HOURS TOPICAL PATCH TD SCH (10:35)
[2022-03-13] MEDS: MELATONIN 5 MG TABLETS PO SCH (21:48)
[2022-03-13] MEDS: THIAMINE HCL 100 MG TABLET (FP) PO SCH (21:48)
[2022-03-13] MEDS: QUEtiapine FUMARATE 100 MG TABLET (FP) PO SCH (21:48)
[2022-03-14] MEDS: ELVITEG/COB/EMTRI/TENOF (GENVOYA) TABLET (NF) PO SCH (07:17)
[2022-03-14] MEDS: GABAPENTIN 300 MG CAPSULE PO SCH ×2 (10:18→21:33)
[2022-03-14] MEDS: PRENATAL VITAMINS W/ FOLIC ACID TABLET (FP) PO SCH (10:18)
[2022-03-14] MEDS: QUEtiapine FUMARATE 50 MG TABLET PO SCH (10:18)
[2022-03-14] MEDS: NICOTINE 7 MG/24 HOURS TOPICAL PATCH TD SCH (10:18)
[2022-03-14] MEDS ORDERED: COLLOIDAL OATMEAL 1 BAR EACH TP PRN (15:58)
[2022-03-14] MEDS: QUEtiapine FUMARATE 100 MG TABLET (FP) PO SCH (21:33)
[2022-03-14] MEDS: THIAMINE HCL 100 MG TABLET (FP) PO SCH (21:33)
[2022-03-14] MEDS: MELATONIN 5 MG TABLETS PO SCH (21:33)
[2022-03-14] MEDS: MAG HYDROX/AL HYDROX/SIMETH 30 ML UNIT-DOSE CUP PO PRN (21:35)
[2022-03-15] MEDS: ELVITEG/COB/EMTRI/TENOF (GENVOYA) TABLET (NF) PO SCH (07:09)
[2022-03-15] MEDS: GABAPENTIN 300 MG CAPSULE PO SCH ×3 (10:09→21:36)
[2022-03-15] MEDS: QUEtiapine FUMARATE 50 MG TABLET PO SCH (10:09)
[2022-03-15] MEDS: PRENATAL VITAMINS W/ FOLIC ACID TABLET (FP) PO SCH (10:09)
[2022-03-15] MEDS: NICOTINE 7 MG/24 HOURS TOPICAL PATCH TD SCH (10:10)
[2022-03-15] MEDS: MAG HYDROX/AL HYDROX/SIMETH 30 ML UNIT-DOSE CUP PO PRN ×2 (15:30→21:37)
[2022-03-15] MEDS: MELATONIN 5 MG TABLETS PO SCH (21:35)
[2022-03-15] MEDS: QUEtiapine FUMARATE 100 MG TABLET (FP) PO SCH (21:35)
[2022-03-15] MEDS: THIAMINE HCL 100 MG TABLET (FP) PO SCH (21:36)
[2022-03-16] MEDS: GABAPENTIN 300 MG CAPSULE PO SCH ×3 (06:39→21:18)
[2022-03-16] MEDS: MAG HYDROX/AL HYDROX/SIMETH 30 ML UNIT-DOSE CUP PO PRN (06:41)
[2022-03-16] MEDS: ELVITEG/COB/EMTRI/TENOF (GENVOYA) TABLET (NF) PO SCH (08:02)
[2022-03-16] MEDS: PRENATAL VITAMINS W/ FOLIC ACID TABLET (FP) PO SCH (10:17)
[2022-03-16] MEDS: QUEtiapine FUMARATE 50 MG TABLET PO SCH (10:18)
[2022-03-16] MEDS: NICOTINE 7 MG/24 HOURS TOPICAL PATCH TD SCH (10:18)
[2022-03-16] MEDS ORDERED: FLUCONAZOLE 50 MG TABLET PO ONE (10:30)
[2022-03-16] MEDS: THIAMINE HCL 100 MG TABLET (FP) PO SCH (21:18)
[2022-03-16] MEDS: QUEtiapine FUMARATE 100 MG TABLET (FP) PO SCH (21:18)
[2022-03-16] MEDS: MELATONIN 5 MG TABLETS PO SCH (21:19)
[2022-03-17] MEDS: GABAPENTIN 300 MG CAPSULE PO SCH ×3 (06:22→21:30)
[2022-03-17 06:52] VITALS: RESP 18
[2022-03-17] MEDS: ELVITEG/COB/EMTRI/TENOF (GENVOYA) TABLET (NF) PO SCH (07:43)
[2022-03-17] MEDS: QUEtiapine FUMARATE 50 MG TABLET PO SCH (09:57)
[2022-03-17] MEDS: PRENATAL VITAMINS W/ FOLIC ACID TABLET (FP) PO SCH (09:57)
[2022-03-17] MEDS: NICOTINE 7 MG/24 HOURS TOPICAL PATCH TD SCH (09:58)
[2022-03-17] MEDS: QUEtiapine FUMARATE 100 MG TABLET (FP) PO SCH (21:30)
[2022-03-17] MEDS: THIAMINE HCL 100 MG TABLET (FP) PO SCH (21:30)
[2022-03-17] MEDS: MELATONIN 5 MG TABLETS PO SCH (21:31)
[2022-03-18] MEDS: GABAPENTIN 300 MG CAPSULE PO SCH ×3 (06:30→21:38)
[2022-03-18] MEDS: ELVITEG/COB/EMTRI/TENOF (GENVOYA) TABLET (NF) PO SCH (07:03)
[2022-03-18] MEDS: QUEtiapine FUMARATE 50 MG TABLET PO SCH (09:47)
[2022-03-18] MEDS: NICOTINE 7 MG/24 HOURS TOPICAL PATCH TD SCH (09:47)
[2022-03-18] MEDS: PRENATAL VITAMINS W/ FOLIC ACID TABLET (FP) PO SCH (09:47)
[2022-03-18] MEDS: THIAMINE HCL 100 MG TABLET (FP) PO SCH (21:38)
[2022-03-18] MEDS: MELATONIN 5 MG TABLETS PO SCH (21:38)
[2022-03-18] MEDS: QUEtiapine FUMARATE 100 MG TABLET (FP) PO SCH (21:38)
[2022-03-19] MEDS: GABAPENTIN 300 MG CAPSULE PO SCH ×3 (06:15→21:35)
[2022-03-19] MEDS: ELVITEG/COB/EMTRI/TENOF (GENVOYA) TABLET (NF) PO SCH (07:03)
[2022-03-19] MEDS: QUEtiapine FUMARATE 50 MG TABLET PO SCH (09:45)
[2022-03-19] MEDS: PRENATAL VITAMINS W/ FOLIC ACID TABLET (FP) PO SCH (09:46)
[2022-03-19] MEDS: NICOTINE 7 MG/24 HOURS TOPICAL PATCH TD SCH (09:46)
[2022-03-19] MEDS: MELATONIN 5 MG TABLETS PO SCH (21:35)
[2022-03-19] MEDS: QUEtiapine FUMARATE 100 MG TABLET (FP) PO SCH (21:36)
[2022-03-19] MEDS: THIAMINE HCL 100 MG TABLET (FP) PO SCH (21:36)
[2022-03-20] MEDS: GABAPENTIN 300 MG CAPSULE PO SCH ×3 (06:45→21:34)
[2022-03-20] MEDS: ELVITEG/COB/EMTRI/TENOF (GENVOYA) TABLET (NF) PO SCH (07:13)
[2022-03-20] MEDS: NICOTINE 7 MG/24 HOURS TOPICAL PATCH TD SCH (10:02)
[2022-03-20] MEDS: QUEtiapine FUMARATE 50 MG TABLET PO SCH (10:02)
[2022-03-20] MEDS: PRENATAL VITAMINS W/ FOLIC ACID TABLET (FP) PO SCH (10:02)
[2022-03-20] MEDS: MAG HYDROX/AL HYDROX/SIMETH 30 ML UNIT-DOSE CUP PO PRN (18:11)
[2022-03-20] MEDS: THIAMINE HCL 100 MG TABLET (FP) PO SCH (21:32)
[2022-03-20] MEDS: MELATONIN 5 MG TABLETS PO SCH (21:33)
[2022-03-20] MEDS: QUEtiapine FUMARATE 100 MG TABLET (FP) PO SCH (21:35)
[2022-03-21] MEDS: GABAPENTIN 300 MG CAPSULE PO SCH ×3 (06:51→21:35)
[2022-03-21] MEDS: ELVITEG/COB/EMTRI/TENOF (GENVOYA) TABLET (NF) PO SCH (07:03)
[2022-03-21] MEDS: PRENATAL VITAMINS W/ FOLIC ACID TABLET (FP) PO SCH (09:34)
[2022-03-21] MEDS: QUEtiapine FUMARATE 50 MG TABLET PO SCH (09:34)
[2022-03-21] MEDS: NICOTINE 7 MG/24 HOURS TOPICAL PATCH TD SCH (09:34)
[2022-03-21] MEDS: THIAMINE HCL 100 MG TABLET (FP) PO SCH (21:35)
[2022-03-21] MEDS: QUEtiapine FUMARATE 100 MG TABLET (FP) PO SCH (21:35)
[2022-03-21] MEDS: MELATONIN 5 MG TABLETS PO SCH (21:35)
[2022-03-22] MEDS: GABAPENTIN 300 MG CAPSULE PO SCH ×3 (06:29→21:32)
[2022-03-22] MEDS: ELVITEG/COB/EMTRI/TENOF (GENVOYA) TABLET (NF) PO SCH (07:28)
[2022-03-22] MEDS: PRENATAL VITAMINS W/ FOLIC ACID TABLET (FP) PO SCH (09:59)
[2022-03-22] MEDS: NICOTINE 7 MG/24 HOURS TOPICAL PATCH TD SCH (10:00)
[2022-03-22] MEDS: QUEtiapine FUMARATE 50 MG TABLET PO SCH (10:00)
[2022-03-22] MEDS: MELATONIN 5 MG TABLETS PO SCH (21:32)
[2022-03-22] MEDS: QUEtiapine FUMARATE 100 MG TABLET (FP) PO SCH (21:32)
[2022-03-22] MEDS: THIAMINE HCL 100 MG TABLET (FP) PO SCH (21:32)
[2022-03-23] MEDS: GABAPENTIN 300 MG CAPSULE PO SCH ×3 (06:21→21:32)
[2022-03-23] MEDS: ELVITEG/COB/EMTRI/TENOF (GENVOYA) TABLET (NF) PO SCH (07:29)
[2022-03-23] MEDS: QUEtiapine FUMARATE 50 MG TABLET PO SCH (09:59)
[2022-03-23] MEDS: PRENATAL VITAMINS W/ FOLIC ACID TABLET (FP) PO SCH (09:59)
[2022-03-23] MEDS: NICOTINE 7 MG/24 HOURS TOPICAL PATCH TD SCH (09:59)
[2022-03-23] MEDS: guaiFENesin 200 MG/10 ML 10 ML UNIT-DOSE CUPS PO PRN (16:30)
[2022-03-23] MEDS: QUEtiapine FUMARATE 100 MG TABLET (FP) PO SCH (21:32)
[2022-03-23] MEDS: MELATONIN 5 MG TABLETS PO SCH (21:32)
[2022-03-23] MEDS: THIAMINE HCL 100 MG TABLET (FP) PO SCH (21:32)
[2022-03-23] MEDS: MAG HYDROX/AL HYDROX/SIMETH 30 ML UNIT-DOSE CUP PO PRN (21:58)
[2022-03-24] MEDS: guaiFENesin 200 MG/10 ML 10 ML UNIT-DOSE CUPS PO PRN ×3 (03:46→17:36)
[2022-03-24] MEDS: GABAPENTIN 300 MG CAPSULE PO SCH ×3 (06:30→21:33)
[2022-03-24] MEDS: ELVITEG/COB/EMTRI/TENOF (GENVOYA) TABLET (NF) PO SCH (07:09)
[2022-03-24] MEDS: NICOTINE 7 MG/24 HOURS TOPICAL PATCH TD SCH (09:56)
[2022-03-24] MEDS: QUEtiapine FUMARATE 50 MG TABLET PO SCH (09:56)
[2022-03-24] MEDS: PRENATAL VITAMINS W/ FOLIC ACID TABLET (FP) PO SCH (09:56)
[2022-03-24] MEDS ORDERED: BISMUTH SUBSALICYLATE 524 MG/30 ML PO PRN (11:43)
[2022-03-24] MEDS: BENZOCAINE/MENTHOL (CHLORASEPTIC ) LOZENGE MM PRN ×2 (14:14→21:34)
[2022-03-24] MEDS: QUEtiapine FUMARATE 100 MG TABLET (FP) PO SCH (21:33)
[2022-03-24] MEDS: THIAMINE HCL 100 MG TABLET (FP) PO SCH (21:34)
[2022-03-24] MEDS: MELATONIN 5 MG TABLETS PO SCH (21:34)
[2022-03-25] MEDS: BENZOCAINE/MENTHOL (CHLORASEPTIC ) LOZENGE MM PRN ×3 (04:19→21:26)
[2022-03-25] MEDS: guaiFENesin 200 MG/10 ML 10 ML UNIT-DOSE CUPS PO PRN ×3 (04:19→21:25)
[2022-03-25] MEDS: GABAPENTIN 300 MG CAPSULE PO SCH ×3 (06:31→21:24)
[2022-03-25] MEDS: ELVITEG/COB/EMTRI/TENOF (GENVOYA) TABLET (NF) PO SCH (07:12)
[2022-03-25] MEDS: PRENATAL VITAMINS W/ FOLIC ACID TABLET (FP) PO SCH (10:17)
[2022-03-25] MEDS: QUEtiapine FUMARATE 50 MG TABLET PO SCH (10:17)
[2022-03-25] MEDS: NICOTINE 7 MG/24 HOURS TOPICAL PATCH TD SCH (10:17)
[2022-03-25] MEDS: QUEtiapine FUMARATE 100 MG TABLET (FP) PO SCH (21:24)
[2022-03-25] MEDS: MELATONIN 5 MG TABLETS PO SCH (21:24)
[2022-03-25] MEDS: THIAMINE HCL 100 MG TABLET (FP) PO SCH (21:24)
[2022-03-26] MEDS: guaiFENesin 200 MG/10 ML 10 ML UNIT-DOSE CUPS PO PRN ×2 (04:06→10:03)
[2022-03-26] MEDS: BENZOCAINE/MENTHOL (CHLORASEPTIC ) LOZENGE MM PRN ×3 (04:07→21:51)
[2022-03-26] MEDS: GABAPENTIN 300 MG CAPSULE PO SCH ×3 (06:13→21:46)
[2022-03-26] MEDS: ELVITEG/COB/EMTRI/TENOF (GENVOYA) TABLET (NF) PO SCH (08:05)
[2022-03-26] MEDS: NICOTINE 7 MG/24 HOURS TOPICAL PATCH TD SCH (10:02)
[2022-03-26] MEDS: QUEtiapine FUMARATE 50 MG TABLET PO SCH (10:02)
[2022-03-26] MEDS: PRENATAL VITAMINS W/ FOLIC ACID TABLET (FP) PO SCH (10:02)
[2022-03-26] MEDS: QUEtiapine FUMARATE 100 MG TABLET (FP) PO SCH (21:46)
[2022-03-26] MEDS: THIAMINE HCL 100 MG TABLET (FP) PO SCH (21:46)
[2022-03-26] MEDS: MELATONIN 5 MG TABLETS PO SCH (21:46)
[2022-03-27] MEDS: GABAPENTIN 300 MG CAPSULE PO SCH ×3 (06:28→21:38)
[2022-03-27] MEDS: guaiFENesin 200 MG/10 ML 10 ML UNIT-DOSE CUPS PO PRN (06:29)
[2022-03-27] MEDS: ELVITEG/COB/EMTRI/TENOF (GENVOYA) TABLET (NF) PO SCH (08:11)
[2022-03-27] MEDS: PRENATAL VITAMINS W/ FOLIC ACID TABLET (FP) PO SCH (10:03)
[2022-03-27] MEDS: NICOTINE 7 MG/24 HOURS TOPICAL PATCH TD SCH (10:03)
[2022-03-27] MEDS: QUEtiapine FUMARATE 50 MG TABLET PO SCH (10:04)
[2022-03-27] MEDS: MELATONIN 5 MG TABLETS PO SCH (21:38)
[2022-03-27] MEDS: QUEtiapine FUMARATE 100 MG TABLET (FP) PO SCH (21:38)
[2022-03-27] MEDS: THIAMINE HCL 100 MG TABLET (FP) PO SCH (21:38)
[2022-03-28] MEDS: GABAPENTIN 300 MG CAPSULE PO SCH (06:37)
[2022-03-28 07:16] VITALS: BP 101/68; PULSE 87; TEMP 96.3
[2022-03-28] MEDS: ELVITEG/COB/EMTRI/TENOF (GENVOYA) TABLET (NF) PO SCH (07:36)
[2022-03-28] MEDS: PRENATAL VITAMINS W/ FOLIC ACID TABLET (FP) PO SCH (09:02)
[2022-03-28] MEDS: QUEtiapine FUMARATE 50 MG TABLET PO SCH (09:02)
[2022-03-28] MEDS: NICOTINE 7 MG/24 HOURS TOPICAL PATCH TD SCH (09:02)
== END 2022-03-28 10:00 | disposition home or self-care (01) | DRG 772 ==
LOC: YASAS 10:05 → Y5N 14:56
PROVIDERS: ADMIT Allergy & Immunology; ATTEND Psychiatry & Neurology Pain Medicine
PROC: HZ42ZZZ Group Counseling for Substance Abuse Treatment, Cognitive-Behavioral (ICD-10-PCS; principal; 2022-03-06)
DX: F14.20 Cocaine dependence, uncomplicated (principal); F10.20 Alcohol dependence, uncomplicated; F17.210 Nicotine dependence, cigarettes, uncomplicated; F19.282 Other psychoactive substance dependence with psychoactive substance-induced sleep disorder; F19.24 Other psychoactive substance dependence with psychoactive substance-induced mood disorder; F25.0 Schizoaffective disorder, bipolar type; Z21 Asymptomatic human immunodeficiency virus [HIV] infection status; G47.00 Insomnia, unspecified; R10.13 Epigastric pain; R07.0 Pain in throat; L29.2 Pruritus vulvae
CPT/HCPCS: 36415; 80053; 81003; 81025; 82962; 85027; 86593; 86780; 86803; 87811; C9803-CS; G0008; Q2036; U0003; U0005